=== PATIENT | male | born 1965 | race Caucasian/White ===

== ENCOUNTER 2017-01-03 10:44 | Inpatient (IN) | payer OTHER ==
--- NOTE | ~2017-01-03 | CN ---
Consultation Report [facility] [address] [place]. [address] NAME: SCOTT MENJIVAR : 67 STATUS : ADM IN PAT#: [id number] AGE: 51 ADM/REG DATE : 01/03/17 MR#: [id number] REPORT SERV DATE: 01/04/17 DICTATED BY: ELIECER BRITO DATE: 01/04/17 REPORT STATUS : Draft TRANSCRIBED BY: MODVega DATE: 01/04/17 CONSULT DATE OF CONSULTATION: HISTORY OF PRESENT ILLNESS: This is a 51-year-old patient of Dr. Whittington, I was asked by [facility] to see for vent and ICU management. The patient currently resides at [facility] and normally is off the vent during the day and on the vent at night. 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 The patient has developed progressive abdominal distention and could no longer tolerate being off the vent during the day. He therefore was brought into the emergency room for further evaluation and subsequently, was admitted. CT scan of the abdomen and pelvis showed a large amount of stool in the distal sigmoid colon and rectum. Urinary bladder is decompressed. Prominent gaseous distention was noted in the proximal sigmoid colon and mid transverse colon up to 7.8 cm in diameter. No small bowel dilatation was demonstrated. The patient currently is in the MICU, and we will follow him there and assist in his care. ALLERGIES: THE PATIENT HAS NO KNOWN ALLERGIES. MEDICATIONS: Outpatient medications are: Albuterol nebs, Xanax, Lipitor, , Cardizem, ferrous sulfate, Lasix, Lopid, glucagon, guaifenesin, NovoLog insulin, Lantus insulin, Claritin, metformin, Reglan, multivitamins, Prilosec, MiraLAX, Xarelto, Senokot, Zoloft, Ultram, Ambien, and probiotics. PAST MEDICAL HISTORY: 1. Significant for advanced myotonic dystrophy with bed-bound status, hypercapnic respiratory failure, chronic vent and trach. 2. Chronic hypotension, on midodrine. 3. Hyperlipidemia. 4. Allergic rhinitis. 5. Depression. 6. Sclerosing hemangioma of the liver. 7. Dysphagia with PEG tube placement. 8. History of pleural effusion. 9. Multiple bronchoscopies for mucus plugging. 10.PEG tube placement. 11.Tracheostomy done in July of 2015. 12.Type 2 diabetes mellitus. SOCIAL HISTORY: No known history of smoking. No history of alcohol abuse. FAMILY HISTORY: Significant for hypertension and heart disease. Consultation Report [place] [id number] [place]. [address] NAME: SCOTT MENJIVAR : 67 STATUS : ADM IN [facility]#: [id number] AGE: 51 ADM/REG DATE : 01/03/17 MR#: [id number] REPORT SERV DATE: 01/04/17 DICTATED BY: ELIECER BRITO DATE: 01/04/17 REPORT STATUS : Draft TRANSCRIBED BY: MELL DATE: 01/04/17 REVIEW OF SYSTEMS: A 12-point review of systems was done. It was somewhat difficult since the patient is on the vent and sometimes has difficulty communicating, but his biggest complaint is that of abdominal pain. He does not have any nausea or vomiting at this time. PHYSICAL EXAMINATION: VITAL SIGNS: Temperature has been running 99 to 100, blood pressure 118/74, heart rate is 102 to 110, respiratory rate is 23. GENERAL: The patient is alert. He is responsive. SKIN: Warm and dry. HEENT: Head is atraumatic and normocephalic. Pupils are equal, round, and reactive to light and accommodation. Extraocular eye movements are intact. Sclerae anicteric. Conjunctivae are pink. Nasal mucosa is within normal limits. Oral mucosa is moist. Tongue is midline. Tracheostomy tube is in place and without evidence of infection or drainage. CARDIAC: Reveals a regular rate and rhythm with no significant murmurs. He has markedly decreased breath sounds at the bases. No wheezing is heard. ABDOMEN: Markedly distended and tympanitic. Bowel sounds are diminished. PEG tube is in place and is in dire need of being changed. The PEG tube site is without any drainage or evidence of infection. The patient has a Prince in place. The patient has a small DTI on the first finger on the right hand. Diabetic foot ulcers are noted on his toes and #2 sacral decubitus with Mepilex dressing in place, and with an eschar on the left elbow. NEUROLOGIC: The patient can barely move any of his extremities. He is pretty much bed- bound. He is able to communicate. His cranial nerves are intact. DIAGNOSTIC DATA: Chest X-rays shows marked atelectasis at the bases. Tracheostomy tube is in proper position. Currently, he has had a sputum culture sent and is pending, and he has been started the antibiotics as per Dr. Whittington. His lactic acid level is 1.1. His urinalysis is very suggestive of urinary tract infection, but he does have a chronic Prince. White cell count is 13.7, hemoglobin is 11, hematocrit is 37, platelet count is 266,000. PT/INR is 1.8. Procalcitonin is 0.51. Sodium 142, potassium 3.4, chloride 97, bicarb 35, BUN 22, creatinine 0.3, glucose 244. TSH is less than 0.005, free T4 is 1.4. ASSESSMENT AND PLAN: This is a 51-year-old gentleman with advanced myotonic dystrophy, bedbound, chronic trach and PEG, who presents with severe constipation, abdominal discomfort, and respiratory compromise. The plan will be to continue current vent settings, which are pressure control of 20, pressure support of 10, PEEP of 5, rate of 12, and FiO2 of 50%. We will institute GoLYTELY drip through the PEG tube to facilitate resolution of severe constipation. I have noted extremely low TSH, but normal T3 and T4, which may indicate that this is not a primary hyperthyroidism. We will repeat lab work in the morning with TSH, free T4, and free T3, may be a central etiology. The patient is not on Synthroid according to his MAR. Tube feedings will be continued when the patient can tolerate them. He is already on Xarelto and has not needed any further deep venous thrombosis prophylaxis. Thank you for your consultation. We will follow patient with you. Consultation Report [place] [id number] [place]. [address] NAME: SCOTT MENJIVAR : 67 STATUS : ADM IN [facility]#: [id number] AGE: 51 ADM/REG DATE : 01/03/17 MR#: [id number] REPORT SERV DATE: 01/04/17 DICTATED BY: ELIECER BRITO DATE: 01/04/17 REPORT STATUS : Draft TRANSCRIBED BY: MELL DATE: 01/04/17 /MELL Eliecer Brito M.D. / [id number] CC: Nino Dumont M.D.
--- NOTE | ~2017-01-03 | DS ---
Discharge Summary [facility] [address] [place]. [address] NAME: SCOTT MENJIVAR : 67 STATUS : DIS IN PAT#: [id number] AGE: 51 ADM/REG DATE : 01/03/17 MR#: [id number] REPORT SERV DATE: 01/28/17 DICTATED BY: NUNO DONNELLY DATE: 01/27/17 REPORT STATUS : Draft TRANSCRIBED BY: MELL DATE: 01/27/17 Data Collection from hospitalization DISCHARGE DIAGNOSES: 1. Dupwzzvc-tqhfgdrq-pnjtsamai Klebsiella pneumonia, right greater than left - aspiration/healthcare associated pneumonia. 2. Abdominal distention with constipation - chronic. 3. Dysphagia with PEG tube. 4. Advanced myoclonic dystrophy. 5. Chronic respiratory failure-vent dependent. 6. History of atrial fibrillation/flutter with chronic anticoagulation therapy. 7. Hypotension - chronic. 8. History of sclerosing hemangioma of the liver. 9. Depression. 10.Hyperlipidemia. 11.Gait impairment. 12.Debilitation. 13.History of anemia of chronic disease. CONSULTATIONS: Dr. Lashell Brito, Dr. Hubert Cano, Dr. Andrei Buchanan, Dr. Panfilo Ervin. PROCEDURES: 1. CT scan of the abdomen and pelvis without contrast, 01/03/2017. 2. CT scan of the chest without contrast, 01/15/2017. DISCHARGE MEDICATIONS: Xanax 0.5 mg per PEG tube three times a day, Lipitor 10 mg per PEG tube at bedtime, Lioresal 5 mg per PEG tube three times a day, Cardizem 30 mg per PEG tube three times a day, ferrous sulfate 300 mg per PEG tube twice a day, Lasix 40 mg per PEG tube daily, Lopid 600 mg per PEG tube twice a day, felypressin 10 mL per PEG tube every eight hours, NovoLog injection insulin as instructed, Claritin 10 mg per PEG tube daily, Linzess 145 mcg daily as instructed, Merrem 500 mg IV every six hours as needed through 01/17/2017, Reglan 5 mg every six hours, Centrum multivitamins with minerals 15 mL daily, Mycostatin topical powder apply to rash topically daily, Mycostatin cream apply to rash topically daily, Prilosec 20 mg per PEG tube daily, MiraLAX powder one packet per PEG tube daily, Xarelto 20 mg at 5 p.m., Florastor one capsule at bedtime, Senokot two tablets per PEG tube daily, Zoloft 150 mg per PEG tube daily, Ambien 5 mg per PEG tube at bedtime, sodium chloride as instructed, Mucomyst 3 mL via inhaler every eight hours as instructed, DuoNeb 3 mL via inhaler every four hours as instructed, Tylenol 650 mg orally every four hours as needed, Ultram 50 mg per PEG tube every six hours as needed, DuoNeb inhaled solution one nebulized inhaler three times a day as needed. CONDITION ON DISCHARGE: Stable. DISPOSITION: The patient was discharged to [facility] nursing [facility] on tube feedings with activities as instructed. HOSPITAL COURSE: This is a 51-year-old man who was transferred from [facility] to the [facility] Emergency Room with the chief complaint of abdominal pain Discharge [address] [address] NAME: SCOTT MENJIVAR : 67 STATUS : DIS IN PAT#: [id number] AGE: 51 ADM/REG DATE : 01/03/17 MR#: [id number] REPORT SERV DATE: 01/28/17 DICTATED BY: NUNO DONNELLY DATE: 01/27/17 REPORT STATUS : Draft TRANSCRIBED BY: MELL DATE: 01/27/17 and increased trach sputum. He has a long unfortunate hospital course over the past year or so. He has chronic advanced myoclonic dystrophy with chronic respiratory failure and tracheostomy. He was at [facility] for long-term care when it was noted that he had increased sputum, abdominal distention, and overall decline, he was transferred to the emergency room. Workup there revealed questionable pneumonia, leukocytosis, and multiple other abnormalities with electrolytes as well as stool stasis and obstipation with abdominal distention. He was admitted to the hospital at this time for further evaluation and treatment. Upon admission, a CT scan of the abdomen and pelvis without contrast was performed. He was covered with broad-spectrum microbes with Zosyn and vancomycin. Blood cultures were obtained. Prince catheter was going to be changed and repeat urinalysis would be obtained. Tube feedings would be restarted once his fecal stasis cleared. The following day, a PICC line was inserted. Blood cultures were negative. He was felt to have bilateral pneumonia- health care associated pneumonia, right greater than left. Antibiotics were continued. The head of his bed was elevated at 30 degrees. He does have a PEG tube as he does have dysphagia. He was seen by Dr. Lashell Brito. The CT scan of the abdomen and pelvis had shown a large amount of stool in the distal sigmoid colon and rectum. Urinary bladder was decompressed. Prominent gaseous distention was noted in the proximal sigmoid colon and mid transverse colon up to 7.8 cm in diameter. No small bowel dilatation was demonstrated. He was currently in the MICU. Chest x-ray showed marked atelectasis at the bases. Tracheostomy tube was in the proper position. Sputum culture was pending. White blood cell count was 13.7. GoLYTELY drip was going to be initiated through PEG tube. Tube feedings would be continued once the patient could tolerate them. He was already on Xarelto. The patient was found to have Enterococcus urinary tract infection. He was in atrial fibrillation/flutter and was rate controlled on Cardizem and Xarelto. Sliding scale insulin and Levemir were continued. On 01/08/2017, he was seen by Dr. Andrei Buchanan. Creatinine level was less than 0.15 which was very low. Liver enzymes were within normal limits. White count was 8. He was felt to have possible right lower lobe pneumonia in a patient on chronic ventilator with quadriplegia. Sputum culture grew extended-spectrum beta-lactamase Klebsiella and gram-negative rods, but this was from a chronic tracheostomy so it was unclear what the value was. He was afebrile. Procalcitonin on admission was not very elevated. It was hard to tell if he had any acute pneumonia at this time. He had a positive urine culture on admission for enterococci, but he does have a chronic Prince. Repeat urinalysis did not show large pyuria, but it did show hematuria in cath. He has a colonic distention and fecal stasis. Although, he had bowel movement, he still had abdominal distention. He has a very low TSH but a normal free T4. He was also seen by Dr. Hubert Cano regarding PEG tube change and fecal impaction with abdominal distention. He had a PEG tube in place that was very degenerated and had requested change of this. He was given GoLYTELY via the PEG tube and soapsuds enemas with a large amount of output. It was felt that the PEG tube was damaged and would need to be replaced. He had fecal impaction with colon distention. He appeared to have significant output from the treatment that he received at this point, and there was no reason to pursue any type of endoscopy in this patient, but he did recommend that we start Linzess for his chronic constipation. On 01/07/2017, metformin was held as he had some hypoglycemia. Potassium supplementation was given. Antibiotics were continued. Urine culture was negative. He did have slight Discharge Summary [address] [place]. [address] NAME: SCOTT MENJIVAR : 67 STATUS : DIS IN PAT#: [id number] AGE: 51 ADM/REG DATE : 01/03/17 MR#: [id number] REPORT SERV DATE: 01/28/17 DICTATED BY: NUNO DONNELLY DATE: 01/27/17 REPORT STATUS : Draft TRANSCRIBED BY: MELL DATE: 01/27/17 hematuria. The next day, the Prince catheter was draining well. He had bloody urine with minimal clot. C. difficile study was negative. Urine culture was negative. He had a high fever during the night. On 01/09/2017, he had no further fever reported. He was on ventilator. Meropenem was continued. Vancomycin had been added. His hematuria resolved. The patient had an ileus. The patient's abdomen was large, rounded, and distended with hypoactive bowel sounds. He had 2+ lower extremity edema. Tube feedings were being provided. His T-max was 100.4. On 01/11/2017, he was more alert. He had no shortness of breath. He had very little residual. He had a lot of secretions suction. The patient has ESBL-Klebsiella pneumonia. Antibiotics were continued. Hemoglobin and hematocrit remained stable. T-max was 99.6. Meropenem was continued. He continued to tolerate his PEG feedings. He was seen in consultation. The patient was seen by Dr. Panfilo Ervin. He had been consulted for paronychia, bilateral hallux. The patient is a poor historian and was unable to determine a history of paronychia. The left hallux was anesthetized with lidocaine. He underwent removal of total left hallux nail. Dry sterile dressing was placed. The right hallux nail was debrided as far proximal as possible-half nail and removed the lateral border. Dry sterile dressing was applied. We would continue dry dressings until this healed. All of his other nails were debrided. On 01/14/2017, the patient denied any complaints of breathing difficulty. He was afebrile. Meropenem was continued. He continued to do well. Discharge planning was performed. He had 2+ bilateral lower extremity edema. On 01/16/2017, he was alert but non communicative. His abdomen was soft and nontender. He had no edema. CT scan of the chest without contrast was performed Discharge instructions were given. Due to his improved and stable condition, he was discharged to [facility] nursing [facility] with the above-stated instructions. Information collected by: Claudia Mcdowell I submit the above information as my discharge summary. TG/MODL Nuno Donnelly M.D. / [id number] CC: Nino Dumont M.D. Paul Cornea, M.D. Gregory Olds, MD [facility] Nickie PedrozaPArias
--- NOTE | ~2017-01-03 | CN ---
Consultation Report [facility] [address] [place]. [address] NAME: SCOTT MENJIVAR : 67 STATUS : ADM IN [facility]#: [id number] AGE: 51 ADM/REG DATE : 01/03/17 MR#: [id number] REPORT SERV DATE: 01/04/17 DICTATED BY: HUBERT CANO DATE: 01/04/17 REPORT STATUS : Draft TRANSCRIBED BY: MODL DATE: 01/04/17 CONSULTATION DATE OF CONSULTATION: REASON FOR CONSULTATION: PEG tube change and fecal impaction with abdominal distention. Mr. Menjivar is a 51-year-old man with extensive medical history, currently residing at [facility] on chronic intermittent vent with advanced myotonic dystrophy. He presented with abdominal distention and was noted to have a large amount of stool within the sigmoid colon and some distention of the transverse colon up to 7.8 mm. He also was noted to have a PEG tube in place that was very degenerated and requests change of this. Of note, the patient was given GoLYTELY per his PEG and soapsuds enemas with large amount of output. PAST MEDICAL HISTORY: The patient's past medical history includes diabetes mellitus, myotonic dystrophy, hypertension, and hyperlipidemia. CURRENT MEDICATIONS: See the MAR. ALLERGIES: HE HAS NO KNOWN DRUG ALLERGIES. SOCIAL HISTORY: Unable to obtain from the patient. FAMILY HISTORY: Unable to obtain from the patient. REVIEW OF SYSTEMS: Unable to obtain from the patient. PHYSICAL EXAMINATION: GENERAL: The patient is lying in bed, in no apparent distress. He responded somewhat to voice, but he could not speak as he was intubated. It was unclear how much he could understand. HEENT: His head is atraumatic and normocephalic. His sclerae were nonicteric. Conjunctivae clear. NECK: Revealed no crepitus or thyromegaly. LUNGS: Clear. HEART: Regular rate and rhythm. ABDOMEN: Abdomen was distended. The PEG tube was noted to be in place with degeneration of the plastic around the tube and some tape ceiling lift. EXTREMITIES: Revealed no clubbing or cyanosis. LYMPHATICS: Revealed no lymphadenopathy in the neck or axilla. LAB: Notable for white count 11.6 with hemoglobin of 11.6. TSH was noted to be very low. Consultation Report [facility] [address] [place]. [address] NAME: SCOTT MENJIVAR : 67 STATUS : ADM IN PAT#: [id number] AGE: 51 ADM/REG DATE : 01/03/17 MR#: [id number] REPORT SERV DATE: 01/04/17 DICTATED BY: HUBERT CANO DATE: 01/04/17 REPORT STATUS : Draft TRANSCRIBED BY: MODL DATE: 01/04/17 IMPRESSION: 1. Dysphagia. PEG tube is damaged, needs to be replaced. 2. Fecal impaction with colon distention. The patient appears to have had a significant output from the treatment that he has received at this point, I see no reason to pursue any type of endoscopy in this patient but we would start Linzess for his chronic constipation. GO/MODL Hubert Cano MD / [id number] CC: Nino Dumont M.D.
--- NOTE | ~2017-01-03 | CN ---
Consultation Report [facility] [address] [place]. [address] NAME: SCOTT MENJIVAR : 67 STATUS : DIS IN PAT#: [id number] AGE: 51 ADM/REG DATE : 01/03/17 MR#: [id number] REPORT SERV DATE: 01/28/17 DICTATED BY: YASMANY SANTAMARIA DATE: 01/28/17 REPORT STATUS : Draft TRANSCRIBED BY: MODL DATE: 01/28/17 CONSULTATION DATE OF CONSULTATION: REASON FOR CONSULTATION: Gross hematuria. HISTORY OF PRESENT ILLNESS: Mr. Menjivar is a 51-year-old white gentleman who is ventilator dependent with a permanent tracheostomy and a feeding tube, who was transferred to [facility] with pneumonia from a long-term care facility. He also had according to the nurses severe constipation with abdominal distention. We were asked to see him because he had catheter change. He did develop some mildly gross hematuria. Catheter is draining well however and on irrigation, it irrigates well confirming positioning within the bladder. The patient is nonverbal and can give no history. There is no family available. PHYSICAL EXAMINATION: GENERAL: This is a well-developed gentleman, chronically bed ridden with permanent tracheostomy and a PEG tube. ABDOMEN: Markedly distended and hypertympanitic. However, it is not dull, does not percuss out to be the bladder. GENITALIA: Normal penis and testes. Indwelling Prince catheter is present and draining slightly pink-tinged urine. It irrigates well with a syringe. Perineum normal. RECTAL: Exam not done. IMPRESSION: Catheter trauma. PLAN: Continue conservative therapy. We will follow along with you. There is no indication for other intervention at this time. Thanks very much for asking us to see Mr. Menjivar. MS/MODL Yasmany Santamaria M.D. / [id number] CC: Nino Dumont M.D.
--- NOTE | ~2017-01-03 | HP ---
History And Physical [address] [place]. [address] NAME: SCOTT MENJIVAR : 67 STATUS : ADM IN [facility]#: [id number] AGE: 51 ADM/REG DATE : 01/03/17 MR#: [id number] REPORT SERV DATE: 01/04/17 DICTATED BY: NUNO DONNELLY DATE: 01/03/17 REPORT STATUS : Draft TRANSCRIBED BY: MODL DATE: 01/03/17 DATE OF ADMISSION: 01/03/2017 CHIEF COMPLAINT: Abdominal pain and increased trach sputum. HISTORY OF PRESENT ILLNESS: A 51-year-old white male, transferred from [facility] at [facility] to [facility] Emergency Room for the above complaints. Due to the patient's decreased ability to speak secondary to trach and decreased mental status, full history and physical exam difficult to obtain. Chart and staff were reviewed. The patient has had a long, unfortunate hospital course over the last year or so. 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 Please see old records. He was at [facility] for long-term care when it was noted that he had some increased sputum, abdominal distention, and just overall decline; therefore, he was transferred to the emergency room. Workup there revealed questionable pneumonia, leukocytosis, multiple other abnormalities with electrolytes, as well as stool stasis and obstipation with abdominal distention. Therefore, he was admitted for antibiotic care, ventilatory support, and evaluation of his abdominal symptoms. ALLERGIES: NO KNOWN DRUG ALLERGIES. MEDICATIONS: Please see MAR. 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 PAST SURGICAL HISTORY: PEG tube placement, tracheostomy, and history of CABG. SOCIAL HISTORY: The patient currently is residing at [facility], never , Ca[employer] yarsani, has relatives that help with his care, no history of smoking. FAMILY HISTORY: Hypertension and heart disease. REVIEW OF SYSTEMS: Unable to obtain due to the patient's decreased mental status. PHYSICAL EXAMINATION: VITAL SIGNS: Blood pressure 117/72, pulse 90, respirations 20 on vent, temperature 98.3. GENERAL: White male lying in bed, in no acute distress. HEAD: Normocephalic, atraumatic. History And Physical [address] [place]. [address] NAME: SCOTT MENJIVAR : 67 STATUS : ADM IN [facility]#: [id number] AGE: 51 ADM/REG DATE : 01/03/17 MR#: [id number] REPORT SERV DATE: 01/04/17 DICTATED BY: NUNO DONNELLY DATE: 01/03/17 REPORT STATUS : Draft TRANSCRIBED BY: MODL DATE: 01/03/17 EYES: Some chronic redness, but otherwise anicteric. ENT: Fair dentition with moist mucosa. NECK: Trach present, but no bleeding. LUNGS: Bilateral rhonchi and rales. HEART: Faint sounds, but otherwise regular rate and rhythm. ABDOMEN: Distended, PEG tube in place, tympanic to percussion. Please see CT report. : Prince is present. EXTREMITIES: Chronic wasting. LYMPH: Overall chronic generalized edema. NEURO: Does move extremities and follow simple commands. SKIN: Right elbow with lesion - please see wound care. LABORATORY DATA: CBC shows WBC 13, H and H of 11.5 and 37.5, PLT 266. Chemistry shows Na 142, K 3.4, Cl 97, CO2 of 35, BUN 22, creatinine 0.3. GFR 156. Glucose 244. IMAGING: Chest x-ray shows low lung volumes with bibasilar atelectasis versus consolidation. A small amount of pleural fluid may also be present. Status post CABG with tracheostomy tube in stable position. CT of the abdomen shows large amount of stool in the distal sigmoid colon and rectum with prominent gaseous distention of the proximal sigmoid colon and mild transverse colon up to 7.8 cm in diameter. No small bowel dilatation is demonstrated. Also, there is dense consolidation and atelectasis in the basal aspect of the lower lobes with some minimal patchy infiltrate, may also be present in the right middle lobe. Examination was limited. CONSULTATION: Critical Care was consulted. Appreciate their help with this case. IMPRESSION: 1. Bilateral pneumonia with right greater than left - health center acquired pneumonia, but must consider questionable aspiration. 2. Abdominal distention with obstipation. 3. Leukocytosis. 4. Anemia of chronic disease. 5. Hypokalemia. 6. Pyuria with chronic Prince. 7. History of advanced myotonic dystrophy. 8. Chronic respiratory failure - hypoxic and hypercapnic - with tracheostomy. 9. Dysphagia with percutaneous endoscopic gastrostomy. 10.Debilitation. PLAN: 1. We will cover for broad-spectrum microbes and have Pharmacy dose Zosyn and vancomycin. The patient is at risk for sepsis. 2. Follow leukocytosis as he is at risk for bacteremia. We will check blood cultures. 3. We will begin bowel regimen and try to clear his fecal stasis. The patient is at risk for perforation. 4. Follow H and H as he is at risk for hypoxia with decreasing hematocrit. History And Physical [address] [address] NAME: SCOTT MENJIVAR : 67 STATUS : ADM IN [facility]#: [id number] AGE: 51 ADM/REG DATE : 01/03/17 MR#: [id number] REPORT SERV DATE: 01/04/17 DICTATED BY: NUNO DONNELLY DATE: 01/03/17 REPORT STATUS : Draft TRANSCRIBED BY: MELL DATE: 01/03/17 5. Electrolyte protocol as he is at risk for cardiac arrhythmia. 6. We will change Prince and repeat urinalysis and treat accordingly. The patient is at risk for pyelonephritis. 7. Consult Respiratory for support with his chronic vent. The patient is at risk for mucous plugging as he has had it before in the past and subsequent hypoxia. 8. Head of bed at 30 degrees as he is at risk for aspiration. We will check on restarting tube feedings once his fecal stasis is cleared. 9. DVT precautions. RH/MODL Nuno Donnelly M.D. / [id number] CC: Nino Dumont M.D.
--- NOTE | ~2017-01-03 | CN ---
Consultation Report [facility] [address] [place]. [address] NAME: SCOTT MENJIVAR : 67 STATUS : ADM IN PAT#: [id number] AGE: 51 ADM/REG DATE : 01/03/17 MR#: [id number] REPORT SERV DATE: 01/06/17 DICTATED BY: ANDREI FONSECA DATE: 01/06/17 REPORT STATUS : Draft TRANSCRIBED BY: MODL DATE: 01/06/17 INFECTIOUS DISEASE CONSULT DATE OF CONSULTATION: REASON FOR CONSULT: ESBL Klebsiella pneumoniae. 51 years old white male, with myotonic dystrophy and chronic respiratory failure, on chronic ventilator through a tracheostomy. He was admitted for abdominal distention and increased sputum production. The patient is awake, but unable to talk. I reviewed the chart. He had a tympanitic distended abdomen and the CT scan in the emergency room showed distended left side of the colon with stool impaction and atrophic pancreas. There was also areas of consolidation due to pneumonia or atelectasis in both bases, but more so on the right lower lobe. Admission lab work showed a lactic acid of 1.1, a procalcitonin of 0.5. WBC of 13. Creatinine 0.3. TSH less than 0.05 and free T4 of 1.4. He was started on vancomycin and Zosyn. Urinalysis also showed bacteriuria with WBC of 75 and hematuria. Also, some calcium oxalate crystals. He was put on GoLYTELY drip through a feeding tube as well as antibiotics with vancomycin and Zosyn. The admission blood cultures were negative. A sputum culture is growing an ESBL Klebsiella and a second gram-negative jasbir. The Gram stain showed moderate white blood cells, few gram variable bacilli and rare gram-positive cocci. Admission urine culture grew Enterococcus faecalis, 75,000 colonies. Unclear how was that obtained since he has a chronic Prince. The Prince catheter was changed at some point and now the patient has hematuria. A repeat urinalysis shows 39 white blood cells, positive blood, positive casts. The patient has been afebrile here in the hospital. He has large amount of sputum production. He is on a ventilator with FiO2 of 50% and oxygen saturation of 100%. Chest x- ray initially showed a very diminished lung martinez. A followup chest x-ray yesterday showed better aeration, some blunting of the left costophrenic angle, but no obvious infiltrates. He has had some bowel movements. PAST MEDICAL HISTORY: As I mentioned above plus liver hemangioma, history of mucus plugging. SOCIAL HISTORY: He is in a detention. FAMILY HISTORY: Cannot be obtained. ALLERGIES: NONE LISTED. MEDICATIONS: On admission, it is not available. Current medications list includes Xanax, Lipitor, baclofen, Cardizem, iron, Lasix, gemfibrozil, Robitussin, insulin, liraglutide, loratadine, metformin, Reglan, multivitamin with minerals, Protonix, MiraLAX, Xarelto, Florastor, Senokot, and the antibiotics. Also, Zoloft, Ambien, and insulin. Consultation Report [address] [place]. [address] NAME: SCOTT MENJIVAR : 67 STATUS : ADM IN [facility]#: [id number] AGE: 51 ADM/REG DATE : 01/03/17 MR#: [id number] REPORT SERV DATE: 01/06/17 DICTATED BY: ANDREI FONSECA DATE: 01/06/17 REPORT STATUS : Draft TRANSCRIBED BY: MELL DATE: 01/06/17 PHYSICAL EXAMINATION: GENERAL: He is awake. He has diminished lung sounds throughout, but with egophony at the right base. HEART: Regular rhythm. Distant sounds. ABDOMEN: Very distended with hypoactive bowel sounds. Trach site and PEG site with some erythema. SKIN: With a right elbow wound that is packed, says some arms edema. He has a superficial scab over the left Achilles tendon area. He has a new right arm PICC line. LABORATORY DATA: Lab work today. Sodium increased to 152. Creatinine down to less than 0.15 which is very low given his body size. Liver enzymes within normal limits. WBC 8, hemoglobin 10. ASSESSMENT AND PLAN: 1. Possible right lower lobe pneumonia in a patient on chronic ventilator with quadriplegia. Sputum culture grew extended spectrum beta-lactamase Klebsiella, and gram-negative rods, but again this is from a chronic tracheostomy, so it is unclear what the value is. The patient has been afebrile. Procalcitonin on admission was not very high. He is on 50% FiO2 with good oxygen saturation. Really, it is hard to tell if he has any acute pneumonia at this time. 2. He had a positive urine culture on admission for enterococci, but he has chronic Prince catheter. The repeat urinalysis does not show large pyuria, but does show hematuria and casts. 3. He was admitted with colonic distention and fecal stasis. Although he had bowel movements, he still has abdominal distention. 4. Probably euthyroid sick with very low TSH, but normal free T4. This will need to be followed up in a few weeks. 5. Follow up chest x-ray, procalcitonin, oxygen needs, and for now changed the antibiotic to meropenem alone. PC/MODL Andrei Fonseca M.D. / [id number] CC: Nino Dumont M.D.
--- NOTE | ~2017-01-03 | CN ---
Consultation Report [facility] [address] [place]. [address] NAME: SCOTT MENJIVAR : 67 STATUS : ADM IN PAT#: [id number] AGE: 51 ADM/REG DATE : 01/03/17 MR#: [id number] REPORT SERV DATE: 01/04/17 DICTATED BY: ELIECER BRITO DATE: 01/04/17 REPORT STATUS : Draft TRANSCRIBED BY: MODL DATE: 01/04/17 DATE OF CONSULTATION: HISTORY OF PRESENT ILLNESS: This is a 51-year-old patient, I was asked to see by Dr. Whittington for vent management. The patient currently resides at [facility] and has a history of advanced myotonic dystrophy, chronic respiratory failure on chronic tracheostomy. He is normally off the vent during the day and it is on the vent during the night. He has developed abdominal distention, progressive respiratory failure, and has not been able to tolerate being off the vent during the day. His abdomen has become increasingly distended, and he therefore, was referred to the emergency room for further evaluation. He was seen in the ER and subsequently, had a CT scan of the abdomen and pelvis that show DICTATION ENDS HERE /MODL Eliecer Brito M.D. / [id number] CC: Nino Dumont M.D.
[2017-01-03 11:26] LABS: ASCORBIC ACID (UR NOT ORDER) 40 (NEG); BILIRUBIN, URINE NEGATIVE (NEG); ER URINALYSIS TAT 0 Hrs 09 Mins; KETONE, URINE NEGATIVE (NEG); LEUKOCYTE ESTERASE(NOT OR LARGE (NEG); NITRITE (URINE) NEG (NEG); WBC (NOT ORDERED) (RFLEX) 75 (0-5)
[2017-01-03 11:43] LABS: BASOPHILS 0.1 %; BASOPHILS ABSOLUTE 0.02 10/3/uL (0.0-0.16); EOSINOPHILS 0.8 %; EOSINOPHILS ABSOLUTE 0.11 10/3/uL (0.0-0.53); HEMATOCRIT 37.5 % (40.0-51.0); HEMOGLOBIN 11.5 g/dL (13.6-17.8); IMMATURE GRANULOCYTES 0.3 %; IMMATURE GRANULOCYTES ABSOLUTE 0.04 10/3/uL (0.0-0.11); LYMPHOCYTES 7.5 %; LYMPHOCYTES ABSOLUTE 1.03 10/3/uL (0.67-4.30); MANUAL DIFF NO %; MEAN CORPUS HGB CONC 30.7 g/dL (32.0-36.0); MEAN CORPUSCULAR HEMOGLOB 25.4 pg (26.0-34.0); MEAN PLATELET VOLUME 9.8 fL (9.2-13.0); MONOCYTES 3.8 %; MONOCYTES ABSOLUTE 0.52 10/3/uL (0.21-1.20); NEUTROPHILS 87.5 %; NEUTROPHILS ABSOLUTE 11.94 10/3/uL (2.02-8.40); PLATELET COUNT 266 10/3/uL (150-400); RBC DISTRIBUTION WIDTH 18.2 % (12.0-16.0); RED CELL COUNT 4.52 10/6/uL (4.7-6.1); WHITE BLOOD CELLS 13.7 10/3/uL (4.5-10.5)
[2017-01-03 11:50] LABS: INTERNATIONAL NORMAL RATI 1.8 UNITS (-); PARTIAL THROMBO TIME 41.7 SEC (22.5-37.2)
[2017-01-03 12:00] LABS: A/G RATIO 0.6 (0.7-1.9); ALBUMIN 2.5 G/DL (3.5-5.0); ALKALINE PHOSPHATASE 75 U/L (45-117); BUN (BLOOD UREA NITROGEN) 22 MG/DL (6-23); CHLORIDE, SERUM 97 MMOL/L (96-112); CO2 (CARBON DIOXIDE) 35 MMOL/L (24-34); GFR AFRICAN AMERICAN 181 ML/MIN (>=60); GFR NON AFRICAN AMERICAN 156 ML/MIN (>=60); GLOBULIN 4.5 G/DL (2.5-4.1); GLUCOSE, SERUM 244 MG/DL (60-99); SGOT(AST) 14 U/L (5-40); SGPT(ALT) 14 U/L (5-65); SODIUM, SERUM 142 MMOL/L (135-148); TOTAL BILIRUBIN 0.5 MG/DL (0-1.2)
[2017-01-03 12:01] LABS: POTASSIUM, SERUM 3.4 MMOL/L (3.5-5.3)
[2017-01-03 12:04] LABS: LACTATE 1.1 MMOL/L (0.3-2.4)
[2017-01-03 12:24] LABS: PROTIME (NOT ORD) 20.6 SEC (12.0-14.5)
[2017-01-03 12:29] LABS: PROCALCITONIN 0.51 ng/mL (<0.5)
[2017-01-03] MEDS ORDERED: CLARIT10 PEG (15:54)
[2017-01-03] MEDS ORDERED: SILTUSSIN100 MG/5 M PEG (15:55)
[2017-01-03] MEDS ORDERED: LIOR10 PEG (15:55)
[2017-01-03] MEDS ORDERED: CENTRUM PEG (15:56)
[2017-01-03] MEDS ORDERED: AMB5 PEG (15:56)
[2017-01-03] MEDS ORDERED: PRILO PEG (15:57)
[2017-01-03] MEDS ORDERED: MIRALAX POWDER1 PKT PEG (15:57)
[2017-01-03] MEDS ORDERED: PROBIOTIC PEG (15:57)
[2017-01-03] MEDS ORDERED: SENTAB PEG (15:58)
[2017-01-03] MEDS ORDERED: ZOL100 PEG (15:58)
[2017-01-03] MEDS ORDERED: LANTUS SC (15:59)
[2017-01-03] MEDS ORDERED: GLUCOPHAGE1000 MG PEG (16:00)
[2017-01-03] MEDS ORDERED: HUMALOGPEN SC (16:00)
[2017-01-03] MEDS ORDERED: GLUCPH PEG (16:01)
[2017-01-03] MEDS ORDERED: FESO4UDL PEG (16:01)
[2017-01-03] MEDS ORDERED: DUONEB INH (16:01)
[2017-01-03] MEDS ORDERED: L40 PEG (16:02)
[2017-01-03] MEDS ORDERED: CARD30 PEG (16:02)
[2017-01-03] MEDS ORDERED: LOPID6 PEG (16:02)
[2017-01-03] MEDS ORDERED: REG PEG (16:03)
[2017-01-03] MEDS ORDERED: HEPA50006 SC (16:04)
[2017-01-03] MEDS ORDERED: XARELTO20 MG PO (16:04)
[2017-01-03] MEDS ORDERED: ULTRAM50 PEG (16:05)
[2017-01-03] MEDS ORDERED: GLUCAGON IM (16:06)
[2017-01-03] MEDS ORDERED: X5 PEG (16:24)
[2017-01-03] MEDS ORDERED: LIPITOR10 PEG (16:25)
[2017-01-03 19:45] LABS: ULTRASENSITIVE TSH < 0.005 MCIU/ML (0.358-3.740)
[2017-01-04 04:42] LABS: BASOPHILS 0.2 %; BASOPHILS ABSOLUTE 0.02 10/3/uL (0.0-0.16); EOSINOPHILS 2.7 %; EOSINOPHILS ABSOLUTE 0.31 10/3/uL (0.0-0.53); HEMATOCRIT 38.7 % (40.0-51.0); HEMOGLOBIN 11.6 g/dL (13.6-17.8); IMMATURE GRANULOCYTES 0.3 %; IMMATURE GRANULOCYTES ABSOLUTE 0.03 10/3/uL (0.0-0.11); LYMPHOCYTES 8.9 %; LYMPHOCYTES ABSOLUTE 1.03 10/3/uL (0.67-4.30); MEAN CORPUSCULAR HEMOGLOB 25.6 pg (26.0-34.0); MEAN CORPUSCULAR VOLUME 85.4 fL (80-100); MEAN PLATELET VOLUME 10.1 fL (9.2-13.0); MONOCYTES 6.3 %; MONOCYTES ABSOLUTE 0.73 10/3/uL (0.21-1.20); NEUTROPHILS 81.6 %; NEUTROPHILS ABSOLUTE 9.44 10/3/uL (2.02-8.40); PLATELET COUNT 256 10/3/uL (150-400); RBC DISTRIBUTION WIDTH 17.9 % (12.0-16.0); RED CELL COUNT 4.53 10/6/uL (4.7-6.1); WHITE BLOOD CELLS 11.6 10/3/uL (4.5-10.5)
[2017-01-04 04:45] LABS: MANUAL DIFF NO %
[2017-01-04 05:06] LABS: ALBUMIN 2.5 G/DL (3.5-5.0); BUN (BLOOD UREA NITROGEN) 12 MG/DL (6-23); CALCIUM, SERUM 9.1 MG/DL (8.5-10.4); CHLORIDE, SERUM 102 MMOL/L (96-112); CO2 (CARBON DIOXIDE) 33 MMOL/L (24-34); CREATININE < 0.15 MG/DL (0.70-1.30); FREE T4 1.27 NG/DL (0.76-1.46); GFR AFRICAN AMERICAN 240 ML/MIN (>=60); GFR NON AFRICAN AMERICAN 207 ML/MIN (>=60); GLUCOSE, SERUM 140 MG/DL (60-99); PHOSPHORUS, SERUM 2.7 MG/DL (2.5-4.5); POTASSIUM, SERUM 3.3 MMOL/L (3.5-5.3); SODIUM, SERUM 145 MMOL/L (135-148); ULTRASENSITIVE TSH < 0.005 MCIU/ML (0.358-3.740)
[2017-01-05 04:45] LABS: BASOPHILS 0.3 %; BASOPHILS ABSOLUTE 0.02 10/3/uL (0.0-0.16); EOSINOPHILS 1.4 %; EOSINOPHILS ABSOLUTE 0.11 10/3/uL (0.0-0.53); HEMATOCRIT 38.9 % (40.0-51.0); IMMATURE GRANULOCYTES 0.5 %; IMMATURE GRANULOCYTES ABSOLUTE 0.04 10/3/uL (0.0-0.11); LYMPHOCYTES 11.4 %; LYMPHOCYTES ABSOLUTE 0.88 10/3/uL (0.67-4.30); MEAN CORPUSCULAR HEMOGLOB 24.4 pg (26.0-34.0); MEAN CORPUSCULAR VOLUME 86.4 fL (80-100); MEAN PLATELET VOLUME 10.5 fL (9.2-13.0); MONOCYTES 8.4 %; MONOCYTES ABSOLUTE 0.65 10/3/uL (0.21-1.20); NEUTROPHILS ABSOLUTE 6.05 10/3/uL (2.02-8.40); PLATELET COUNT 212 10/3/uL (150-400); RBC DISTRIBUTION WIDTH 18.3 % (12.0-16.0); WHITE BLOOD CELLS 7.8 10/3/uL (4.5-10.5)
[2017-01-05 04:48] LABS: MEAN CORPUS HGB CONC 28.3 g/dL (32.0-36.0)
[2017-01-05 04:49] LABS: MANUAL DIFF NO %
[2017-01-05 05:15] LABS: BUN (BLOOD UREA NITROGEN) 10 MG/DL (6-23); CALCIUM, SERUM 8.2 MG/DL (8.5-10.4); CHLORIDE, SERUM 109 MMOL/L (96-112); CREATININE 0.15 MG/DL (0.70-1.30); GFR AFRICAN AMERICAN 240 ML/MIN (>=60); GFR NON AFRICAN AMERICAN 207 ML/MIN (>=60); SODIUM, SERUM 147 MMOL/L (135-148); VANCOMYCIN TROUGH 25.9 MCG/ML (10.0-20.0)
[2017-01-05 05:16] LABS: CO2 (CARBON DIOXIDE) 27 MMOL/L (24-34); GLUCOSE, SERUM 110 MG/DL (60-99); POTASSIUM, SERUM 3.5 MMOL/L (3.5-5.3)
[2017-01-06 06:38] LABS: BASOPHILS 0.2 %; BASOPHILS ABSOLUTE 0.02 10/3/uL (0.0-0.16); EOSINOPHILS 3.3 %; EOSINOPHILS ABSOLUTE 0.27 10/3/uL (0.0-0.53); HEMOGLOBIN 9.9 g/dL (13.6-17.8); IMMATURE GRANULOCYTES 0.6 %; IMMATURE GRANULOCYTES ABSOLUTE 0.05 10/3/uL (0.0-0.11); LYMPHOCYTES 11.4 %; LYMPHOCYTES ABSOLUTE 0.94 10/3/uL (0.67-4.30); MEAN CORPUSCULAR HEMOGLOB 25.5 pg (26.0-34.0); MEAN CORPUSCULAR VOLUME 85.3 fL (80-100); MEAN PLATELET VOLUME 9.7 fL (9.2-13.0); MONOCYTES 8.4 %; MONOCYTES ABSOLUTE 0.69 10/3/uL (0.21-1.20); NEUTROPHILS 76.1 %; NEUTROPHILS ABSOLUTE 6.25 10/3/uL (2.02-8.40); PLATELET COUNT 211 10/3/uL (150-400); RED CELL COUNT 3.88 10/6/uL (4.7-6.1); WHITE BLOOD CELLS 8.2 10/3/uL (4.5-10.5)
[2017-01-06 06:40] LABS: HEMATOCRIT 33.1 % (40.0-51.0); MANUAL DIFF NO %; MEAN CORPUS HGB CONC 29.9 g/dL (32.0-36.0)
[2017-01-06 06:54] LABS: CALCIUM, SERUM 8.3 MG/DL (8.5-10.4); CHLORIDE, SERUM 113 MMOL/L (96-112); CO2 (CARBON DIOXIDE) 27 MMOL/L (24-34); PHOSPHORUS, SERUM 2.6 MG/DL (2.5-4.5); SGOT(AST) 18 U/L (5-40); SGPT(ALT) 16 U/L (5-65); SODIUM, SERUM 152 MMOL/L (135-148); TOTAL BILIRUBIN 0.4 MG/DL (0-1.2)
[2017-01-06 06:55] LABS: A/G RATIO 0.5 (0.7-1.9); ALBUMIN 1.9 G/DL (3.5-5.0); ALKALINE PHOSPHATASE 59 U/L (45-117); BUN (BLOOD UREA NITROGEN) 5 MG/DL (6-23); CREATININE < 0.15 MG/DL (0.70-1.30); GFR AFRICAN AMERICAN 240 ML/MIN (>=60); GFR NON AFRICAN AMERICAN 207 ML/MIN (>=60); GLOBULIN 3.5 G/DL (2.5-4.1); GLUCOSE, SERUM 70 MG/DL (60-99); POTASSIUM, SERUM 2.2 MMOL/L (3.5-5.3); TOTAL PROTEIN 5.4 G/DL (6.0-8.5)
[2017-01-06 10:57] LABS: ASCORBIC ACID (UR NOT ORDER) 40 (NEG); BILIRUBIN, URINE NEGATIVE (NEG); KETONE, URINE TRACE MG/DL (NEG); LEUKOCYTE ESTERASE(NOT OR SMALL (NEG); WBC (NOT ORDERED) (RFLEX) 39 (0-5)
[2017-01-07 06:11] LABS: BASOPHILS 0.2 %; BASOPHILS ABSOLUTE 0.02 10/3/uL (0.0-0.16); EOSINOPHILS 4.2 %; EOSINOPHILS ABSOLUTE 0.35 10/3/uL (0.0-0.53); HEMATOCRIT 32.8 % (40.0-51.0); HEMOGLOBIN 9.6 g/dL (13.6-17.8); IMMATURE GRANULOCYTES 0.7 %; IMMATURE GRANULOCYTES ABSOLUTE 0.06 10/3/uL (0.0-0.11); LYMPHOCYTES 9.2 %; LYMPHOCYTES ABSOLUTE 0.76 10/3/uL (0.67-4.30); MEAN CORPUS HGB CONC 29.3 g/dL (32.0-36.0); MEAN CORPUSCULAR HEMOGLOB 25.3 pg (26.0-34.0); MEAN CORPUSCULAR VOLUME 86.5 fL (80-100); MEAN PLATELET VOLUME 9.7 fL (9.2-13.0); MONOCYTES 6.9 %; MONOCYTES ABSOLUTE 0.57 10/3/uL (0.21-1.20); NEUTROPHILS 78.8 %; NEUTROPHILS ABSOLUTE 6.52 10/3/uL (2.02-8.40); PLATELET COUNT 199 10/3/uL (150-400); RBC DISTRIBUTION WIDTH 18.2 % (12.0-16.0); RED CELL COUNT 3.79 10/6/uL (4.7-6.1); WHITE BLOOD CELLS 8.3 10/3/uL (4.5-10.5)
[2017-01-07 06:13] LABS: MANUAL DIFF NO %
[2017-01-07 06:27] LABS: BUN (BLOOD UREA NITROGEN) 3 MG/DL (6-23); CALCIUM, SERUM 7.6 MG/DL (8.5-10.4); CHLORIDE, SERUM 119 MMOL/L (96-112); CO2 (CARBON DIOXIDE) 23 MMOL/L (24-34); PHOSPHORUS, SERUM 2.3 MG/DL (2.5-4.5); SODIUM, SERUM 153 MMOL/L (135-148)
[2017-01-07 06:37] LABS: CREATININE < 0.15 MG/DL (0.70-1.30); GFR AFRICAN AMERICAN 240 ML/MIN (>=60); GFR NON AFRICAN AMERICAN 207 ML/MIN (>=60); GLUCOSE, SERUM 55 MG/DL (60-99); POTASSIUM, SERUM 2.7 MMOL/L (3.5-5.3)
[2017-01-07 08:05] LABS: PROCALCITONIN 0.25 ng/mL (<0.5)
[2017-01-07 13:41] LABS: BUN (BLOOD UREA NITROGEN) 3 MG/DL (6-23); CHLORIDE, SERUM 113 MMOL/L (96-112); CO2 (CARBON DIOXIDE) 25 MMOL/L (24-34); SODIUM, SERUM 150 MMOL/L (135-148)
[2017-01-07 13:42] LABS: CREATININE < 0.15 MG/DL (0.70-1.30); GFR AFRICAN AMERICAN 240 ML/MIN (>=60); GFR NON AFRICAN AMERICAN 207 ML/MIN (>=60); GLUCOSE, SERUM 78 MG/DL (60-99); POTASSIUM, SERUM 4.1 MMOL/L (3.5-5.3)
[2017-01-07 13:43] LABS: CALCIUM, SERUM 8.7 MG/DL (8.5-10.4); PHOSPHORUS, SERUM 3.9 MG/DL (2.5-4.5)
[2017-01-08 07:20] LABS: BASOPHILS 0.2 %; BASOPHILS ABSOLUTE 0.03 10/3/uL (0.0-0.16); EOSINOPHILS 1.2 %; EOSINOPHILS ABSOLUTE 0.17 10/3/uL (0.0-0.53); HEMATOCRIT 34.8 % (40.0-51.0); HEMOGLOBIN 10.3 g/dL (13.6-17.8); IMMATURE GRANULOCYTES 0.7 %; MEAN CORPUS HGB CONC 29.6 g/dL (32.0-36.0); MEAN CORPUSCULAR HEMOGLOB 25.1 pg (26.0-34.0); MEAN CORPUSCULAR VOLUME 84.7 fL (80-100); MEAN PLATELET VOLUME 10.2 fL (9.2-13.0); MONOCYTES 5.8 %; MONOCYTES ABSOLUTE 0.81 10/3/uL (0.21-1.20); NEUTROPHILS 87.1 %; NEUTROPHILS ABSOLUTE 12.14 10/3/uL (2.02-8.40); PLATELET COUNT 243 10/3/uL (150-400); RED CELL COUNT 4.11 10/6/uL (4.7-6.1)
[2017-01-08 07:23] LABS: BUN (BLOOD UREA NITROGEN) 2 MG/DL (6-23); CALCIUM, SERUM 8.2 MG/DL (8.5-10.4); CHLORIDE, SERUM 112 MMOL/L (96-112); CO2 (CARBON DIOXIDE) 24 MMOL/L (24-34); POTASSIUM, SERUM 3.3 MMOL/L (3.5-5.3); SODIUM, SERUM 148 MMOL/L (135-148)
[2017-01-08 07:25] LABS: MANUAL DIFF NO %
[2017-01-08 07:26] LABS: CREATININE < 0.15 MG/DL (0.70-1.30); GFR AFRICAN AMERICAN 240 ML/MIN (>=60); GFR NON AFRICAN AMERICAN 207 ML/MIN (>=60); GLUCOSE, SERUM 104 MG/DL (60-99); PHOSPHORUS, SERUM 2.5 MG/DL (2.5-4.5)
[2017-01-09 04:10] LABS: BASOPHILS 0.3 %; BASOPHILS ABSOLUTE 0.04 10/3/uL (0.0-0.16); EOSINOPHILS 2.2 %; EOSINOPHILS ABSOLUTE 0.28 10/3/uL (0.0-0.53); HEMATOCRIT 36.6 % (40.0-51.0); HEMOGLOBIN 10.9 g/dL (13.6-17.8); IMMATURE GRANULOCYTES 1.7 %; IMMATURE GRANULOCYTES ABSOLUTE 0.21 10/3/uL (0.0-0.11); LYMPHOCYTES 5.1 %; LYMPHOCYTES ABSOLUTE 0.63 10/3/uL (0.67-4.30); MANUAL DIFF NO %; MEAN CORPUS HGB CONC 29.8 g/dL (32.0-36.0); MEAN CORPUSCULAR HEMOGLOB 24.8 pg (26.0-34.0); MEAN CORPUSCULAR VOLUME 83.2 fL (80-100); MEAN PLATELET VOLUME 9.7 fL (9.2-13.0); MONOCYTES 5.7 %; MONOCYTES ABSOLUTE 0.71 10/3/uL (0.21-1.20); PLATELET COUNT 226 10/3/uL (150-400); WHITE BLOOD CELLS 12.5 10/3/uL (4.5-10.5)
[2017-01-09 04:25] LABS: BUN (BLOOD UREA NITROGEN) 2 MG/DL (6-23); CALCIUM, SERUM 8.4 MG/DL (8.5-10.4); CHLORIDE, SERUM 112 MMOL/L (96-112); CO2 (CARBON DIOXIDE) 25 MMOL/L (24-34); GLUCOSE, SERUM 106 MG/DL (60-99); POTASSIUM, SERUM 3.5 MMOL/L (3.5-5.3); SODIUM, SERUM 149 MMOL/L (135-148)
[2017-01-09 04:26] LABS: CREATININE < 0.15 MG/DL (0.70-1.30); GFR AFRICAN AMERICAN 240 ML/MIN (>=60); GFR NON AFRICAN AMERICAN 207 ML/MIN (>=60)
[2017-01-11 04:03] LABS: BASOPHILS 0.2 %; BASOPHILS ABSOLUTE 0.02 10/3/uL (0.0-0.16); EOSINOPHILS 5.4 %; EOSINOPHILS ABSOLUTE 0.44 10/3/uL (0.0-0.53); HEMATOCRIT 34.5 % (40.0-51.0); HEMOGLOBIN 10.6 g/dL (13.6-17.8); IMMATURE GRANULOCYTES 1.1 %; IMMATURE GRANULOCYTES ABSOLUTE 0.09 10/3/uL (0.0-0.11); LYMPHOCYTES 9.6 %; LYMPHOCYTES ABSOLUTE 0.78 10/3/uL (0.67-4.30); MANUAL DIFF NO %; MEAN CORPUS HGB CONC 30.7 g/dL (32.0-36.0); MEAN CORPUSCULAR HEMOGLOB 25.7 pg (26.0-34.0); MEAN CORPUSCULAR VOLUME 83.5 fL (80-100); MONOCYTES 6.4 %; MONOCYTES ABSOLUTE 0.52 10/3/uL (0.21-1.20); NEUTROPHILS 77.3 %; NEUTROPHILS ABSOLUTE 6.27 10/3/uL (2.02-8.40); PLATELET COUNT 215 10/3/uL (150-400); RBC DISTRIBUTION WIDTH 17.9 % (12.0-16.0); RED CELL COUNT 4.13 10/6/uL (4.7-6.1); WHITE BLOOD CELLS 8.1 10/3/uL (4.5-10.5)
[2017-01-11 04:14] LABS: A/G RATIO 0.5 (0.7-1.9); ALBUMIN 1.8 G/DL (3.5-5.0); BUN (BLOOD UREA NITROGEN) 1 MG/DL (6-23); CALCIUM, SERUM 8.3 MG/DL (8.5-10.4); CHLORIDE, SERUM 107 MMOL/L (96-112); CO2 (CARBON DIOXIDE) 29 MMOL/L (24-34); GLOBULIN 3.6 G/DL (2.5-4.1); GLUCOSE, SERUM 105 MG/DL (60-99); PHOSPHORUS, SERUM 2.1 MG/DL (2.5-4.5); SGOT(AST) 14 U/L (5-40); SGPT(ALT) 13 U/L (5-65); SODIUM, SERUM 145 MMOL/L (135-148); TOTAL BILIRUBIN 0.3 MG/DL (0-1.2); TOTAL PROTEIN 5.4 G/DL (6.0-8.5)
[2017-01-11 04:25] LABS: POTASSIUM, SERUM 2.6 MMOL/L (3.5-5.3)
[2017-01-11 04:26] LABS: ALKALINE PHOSPHATASE 80 U/L (45-117); CREATININE < 0.15 MG/DL (0.70-1.30); GFR AFRICAN AMERICAN 240 ML/MIN (>=60); GFR NON AFRICAN AMERICAN 207 ML/MIN (>=60)
[2017-01-12 06:30] LABS: BASOPHILS 0.2 %; BASOPHILS ABSOLUTE 0.02 10/3/uL (0.0-0.16); EOSINOPHILS 2.6 %; EOSINOPHILS ABSOLUTE 0.31 10/3/uL (0.0-0.53); HEMATOCRIT 34.7 % (40.0-51.0); HEMOGLOBIN 10.6 g/dL (13.6-17.8); IMMATURE GRANULOCYTES 0.7 %; IMMATURE GRANULOCYTES ABSOLUTE 0.08 10/3/uL (0.0-0.11); LYMPHOCYTES 6.7 %; LYMPHOCYTES ABSOLUTE 0.78 10/3/uL (0.67-4.30); MEAN CORPUS HGB CONC 30.5 g/dL (32.0-36.0); MEAN CORPUSCULAR HEMOGLOB 25.3 pg (26.0-34.0); MEAN CORPUSCULAR VOLUME 82.8 fL (80-100); MEAN PLATELET VOLUME 10.4 fL (9.2-13.0); MONOCYTES 6.1 %; MONOCYTES ABSOLUTE 0.71 10/3/uL (0.21-1.20); NEUTROPHILS 83.7 %; NEUTROPHILS ABSOLUTE 9.81 10/3/uL (2.02-8.40); PLATELET COUNT 232 10/3/uL (150-400); RBC DISTRIBUTION WIDTH 17.9 % (12.0-16.0); RED CELL COUNT 4.19 10/6/uL (4.7-6.1)
[2017-01-12 06:32] LABS: MANUAL DIFF NO %; WHITE BLOOD CELLS 11.7 10/3/uL (4.5-10.5)
[2017-01-12 06:47] LABS: A/G RATIO 0.5 (0.7-1.9); ALBUMIN 1.9 G/DL (3.5-5.0); ALKALINE PHOSPHATASE 85 U/L (45-117); BUN (BLOOD UREA NITROGEN) 2 MG/DL (6-23); CALCIUM, SERUM 8.6 MG/DL (8.5-10.4); CHLORIDE, SERUM 109 MMOL/L (96-112); CO2 (CARBON DIOXIDE) 30 MMOL/L (24-34); GLOBULIN 3.6 G/DL (2.5-4.1); GLUCOSE, SERUM 117 MG/DL (60-99); POTASSIUM, SERUM 3.8 MMOL/L (3.5-5.3); SGOT(AST) 11 U/L (5-40); SGPT(ALT) 12 U/L (5-65); SODIUM, SERUM 146 MMOL/L (135-148); TOTAL BILIRUBIN 0.4 MG/DL (0-1.2); TOTAL PROTEIN 5.5 G/DL (6.0-8.5)
[2017-01-12 06:54] LABS: CREATININE < 0.15 MG/DL (0.70-1.30); GFR AFRICAN AMERICAN 240 ML/MIN (>=60); GFR NON AFRICAN AMERICAN 207 ML/MIN (>=60)
[2017-01-13 06:31] LABS: BASOPHILS 0.2 %; BASOPHILS ABSOLUTE 0.02 10/3/uL (0.0-0.16); EOSINOPHILS 3.4 %; EOSINOPHILS ABSOLUTE 0.33 10/3/uL (0.0-0.53); HEMATOCRIT 34.8 % (40.0-51.0); HEMOGLOBIN 10.7 g/dL (13.6-17.8); IMMATURE GRANULOCYTES 0.8 %; IMMATURE GRANULOCYTES ABSOLUTE 0.08 10/3/uL (0.0-0.11); LYMPHOCYTES 9.7 %; LYMPHOCYTES ABSOLUTE 0.94 10/3/uL (0.67-4.30); MANUAL DIFF NO %; MEAN CORPUS HGB CONC 30.7 g/dL (32.0-36.0); MEAN CORPUSCULAR HEMOGLOB 25.6 pg (26.0-34.0); MEAN CORPUSCULAR VOLUME 83.3 fL (80-100); MEAN PLATELET VOLUME 9.8 fL (9.2-13.0); MONOCYTES 5.6 %; MONOCYTES ABSOLUTE 0.54 10/3/uL (0.21-1.20); NEUTROPHILS 80.3 %; NEUTROPHILS ABSOLUTE 7.77 10/3/uL (2.02-8.40); PLATELET COUNT 235 10/3/uL (150-400); RBC DISTRIBUTION WIDTH 17.8 % (12.0-16.0); RED CELL COUNT 4.18 10/6/uL (4.7-6.1); WHITE BLOOD CELLS 9.7 10/3/uL (4.5-10.5)
[2017-01-13 06:47] LABS: BUN (BLOOD UREA NITROGEN) 5 MG/DL (6-23); CALCIUM, SERUM 8.6 MG/DL (8.5-10.4); CHLORIDE, SERUM 106 MMOL/L (96-112); CO2 (CARBON DIOXIDE) 33 MMOL/L (24-34); POTASSIUM, SERUM 3.8 MMOL/L (3.5-5.3); SODIUM, SERUM 145 MMOL/L (135-148)
[2017-01-13 06:49] LABS: CREATININE < 0.15 MG/DL (0.70-1.30); GFR AFRICAN AMERICAN 240 ML/MIN (>=60); GFR NON AFRICAN AMERICAN 207 ML/MIN (>=60); GLUCOSE, SERUM 147 MG/DL (60-99)
[2017-01-14 14:58] LABS: HEMATOCRIT 34.4 % (40.0-51.0); HEMOGLOBIN 10.2 g/dL (13.6-17.8); MEAN CORPUS HGB CONC 29.7 g/dL (32.0-36.0); MEAN CORPUSCULAR HEMOGLOB 25.5 pg (26.0-34.0); MEAN PLATELET VOLUME 11.2 fL (9.2-13.0); PLATELET COUNT 263 10/3/uL (150-400); RBC DISTRIBUTION WIDTH 17.8 % (12.0-16.0); WHITE BLOOD CELLS 8.3 10/3/uL (4.5-10.5)
[2017-01-14 15:00] LABS: MANUAL DIFF YES %
[2017-01-14 15:13] LABS: BUN (BLOOD UREA NITROGEN) 7 MG/DL (6-23); CALCIUM, SERUM 8.5 MG/DL (8.5-10.4); CHLORIDE, SERUM 107 MMOL/L (96-112); CO2 (CARBON DIOXIDE) 32 MMOL/L (24-34); POTASSIUM, SERUM 3.9 MMOL/L (3.5-5.3); SODIUM, SERUM 148 MMOL/L (135-148)
[2017-01-14 15:17] LABS: CREATININE < 0.15 MG/DL (0.70-1.30); GFR AFRICAN AMERICAN 240 ML/MIN (>=60); GFR NON AFRICAN AMERICAN 207 ML/MIN (>=60); GLUCOSE, SERUM 67 MG/DL (60-99)
[2017-01-14 16:14] LABS: BAND NEUTROPHILS 1 %; LYMPHOCYTES 11 %; LYMPHOCYTES ABSOLUTE (CALC) 0.91 10/3/uL (0.67-4.30); MONOCYTES 5 %; MONOCYTES ABSOLUTE (CALC) 0.42 10/3/uL (0.21-1.20); NEUTROPHILS ABSOLUTE (CALC) 6.97 10/3/uL (2.02-8.40); SEGMENTED NEUTROPHIL (0) 83 %; TOTAL NUCLEATED CELLS 100
[2017-01-14 16:20] LABS: ANISOCYTOSIS 1+ (5-10/OIF) (0-5/OIF); PLATELET ESTIMATE ADQ (ADEQUATE); RBC MORPHOLOGY ABN (NORMAL)
== END 2017-01-16 19:14 | DRG 207 ==
LOC: ER 10:44 → MIC 16:06 → IMCU 01-10 01:17
PROVIDERS: Emergency Medicine; Family Medicine; Hospitalist; Internal Medicine Critical Care Medicine; Internal Medicine Nephrology; Internal Medicine Pulmonary Disease
DX: J15.0 Pneumonia due to Klebsiella pneumoniae (principal); J96.21 Acute and chronic respiratory failure with hypoxia; G71.11 Myotonic muscular dystrophy; E87.1 Hypo-osmolality and hyponatremia; Z99.11 Dependence on respirator [ventilator] status; D63.8 Anemia in other chronic diseases classified elsewhere; E11.9 Type 2 diabetes mellitus without complications; J98.11 Atelectasis; J96.12 Chronic respiratory failure with hypercapnia; I10 Essential (primary) hypertension; E78.5 Hyperlipidemia, unspecified; I25.10 Atherosclerotic heart disease of native coronary artery without angina pectoris; E87.6 Hypokalemia; K56.41 Fecal impaction; Z51.5 Encounter for palliative care; Z93.0 Tracheostomy status; Z79.899 Other long term (current) drug therapy; Z74.01 Bed confinement status; Z93.1 Gastrostomy status; Z95.1 Presence of aortocoronary bypass graft; Z79.84 Long term (current) use of oral hypoglycemic drugs; Z79.4 Long term (current) use of insulin; Z79.01 Long term (current) use of anticoagulants; F41.9 Anxiety disorder, unspecified; F32.9 Major depressive disorder, single episode, unspecified; I48.2 Chronic atrial fibrillation
CPT/HCPCS: 31720; 36569; 71010; 71250; 74000; 74176; 80048; 80053; 80069; 80202; 81001; 82962; 83605; 83735; 84100; 84132; 84145; 84439; 84443; 84481; 85025; 85610; 85730; 87040; 87070; 87077; 87086; 87186; 87205; 87493; 87493-59; 87641; 90686; 93005; 94003; 94640; 96365; 96523; 97162-GP; 99291; A9270-GY; C1751; C9113; G0008; G0463; J2185; J2405; J2543; J3370

== ENCOUNTER 2017-01-27 16:11 | Inpatient (IN) | payer OTHER ==
--- NOTE | ~2017-01-27 | CN ---
Consultation Report [facility] [address] [place]. [address] NAME: SCOTT MENJIVAR : 67 STATUS : ADM IN PAT#: [id number] AGE: 51 ADM/REG DATE : 01/27/17 MR#: [id number] REPORT SERV DATE: 01/29/17 DICTATED BY: JULIEN COLON DATE: 01/28/17 REPORT STATUS : Draft TRANSCRIBED BY: MODL DATE: 01/28/17 CONSULTATION DATE OF CONSULTATION: 01/28/2017 CHIEF COMPLAINT: Abdominal distention in a patient with chronic respiratory failure and vent dependence. HISTORY OF PRESENT ILLNESS: Mr. Scott Menjivar is a 51-year-old chronically ill appearing white male with a past medical history significant for chronic respiratory failure with vent dependence, tracheostomy, PEG tube, frequent mucus plugging, chronic hypotension, and chronic dysrhythmia, who presents to [facility]'s Emergency Room from an outside care facility for concerns related to abdominal distention. It should be noted that Mr. Menjivar was hospitalized as recently as three weeks ago, when he was seen for similar complaints. Mr. Menjivar resides at [facility] secondary to his chronic respiratory failure and vent dependence. He has been seen by Dr. Stewart in the past. He is on vent settings of SIMV rate of 12 with tidal volume of 500, PEEP of 5, and pressure support of 10. He does have a trach, which has likely some degree of chronic colonization with Proteus and Klebsiella. He has been described in the medical record as being a never smoker. It should be noted that the majority of the following information is garnered from extensive chart review as the patient has difficulty communicating. Again, it appears that Mr. Menjivar was hospitalized as recently as of late December of this year. He was initially seen by the Critical Care Team for vent management, after he presented with issues related to abdominal distention. During that hospitalization, he was seen by Gastroenterology service, who were consulted for a PEG tube change as well as fecal impaction. During this hospitalization, he was also seen by Infectious Disease secondary to a tracheal aspirate that demonstrated Klebsiella and Proteus. The patient did eventually improve and transitioned back to [facility]. More recently, he began to have issues with abdominal distention and as such was transferred to [facility] for further assessment. Upon arrival, the patient was found to be normotensive. He was afebrile. He had appropriate oxygenation on his current settings. He was placed on antibiotics. Procalcitonin was obtained, which revealed a value of 0.53. Initial blood work revealed a white blood cell count of 10,400. He did have a chest x-ray, which revealed improving chest x-ray with resolving pleural effusions. A CT of the abdomen and pelvis revealed improving consolidation in the lung bases as well as improving effusion and ectatic sigmoid colon was appreciated. For the aforementioned reasons, he has been referred to the Pulmonary service for further assessment. Currently, Mr. Menjivar is in the IMCU. He is on a ventilator with good oxygenation sats. His serum CO2 is 36. He is not producing a great amount of purulent sputum. He denies any chest pain or difficulty breathing at this time. Consultation Report [id number] [facility] [place]. [address] NAME: SCOTT MENJIVAR : 67 STATUS : ADM IN [facility]#: [id number] AGE: 51 ADM/REG DATE : 01/27/17 MR#: [id number] REPORT SERV DATE: 01/29/17 DICTATED BY: JULIEN COLON DATE: 01/28/17 REPORT STATUS : Draft TRANSCRIBED BY: MELL DATE: 01/28/17 The patient does have a history of chronic hypotension and is on midodrine. He does have chronic atrial flutter and is on Xarelto for anticoagulation. He denies any chest pain. In regard to constitutional symptoms, these are difficult to obtain due to the patient's mental status and inability to communicate. PAST MEDICAL HISTORY: 1. Atrial flutter. 2. Myotonic dystrophy. 3. Chronic respiratory failure with vent dependence. 4. 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 5. Chronic hypertension, on midodrine. 6. Dyslipidemia. 7. Dysphagia, status post PEG placement. 8. Chronic pleural effusions. 9. History of mucus plugging. 10.Type 2 diabetes. 11.Liver hemangioma. PAST SURGICAL HISTORY: CABG, tracheostomy, and PEG placement FAMILY HISTORY: The patient is unable to provide at this time. SOCIAL HISTORY: From chart review, it appears that he resides at [facility]. He has never been . TOBACCO/ALCOHOL: Again from chart review, it appears he is a never smoker. MEDICATIONS: 1. Acetaminophen 325 mg. 2. DuoNeb. 3. Xanax 0.5 mg. 4. Atorvastatin 10 mg. 5. Baclofen 10 mg. 6. Diltiazem 30 mg. 7. Furosemide 40 mg. 8. Gemfibrozil 600 mg. 9. Guaifenesin. 10.Insulin. 11.Lactulose. 12.Loratadine 10 mg. 13.Reglan 10 mg. 14.Omeprazole 20 mg. 15.Rivaroxaban 20 mg. 16.Tramadol 50 mg. Consultation Report [id number] [place]. [address] NAME: SCOTT MENJIVAR : 67 STATUS : ADM IN [facility]#: [id number] AGE: 51 ADM/REG DATE : 01/27/17 MR#: [id number] REPORT SERV DATE: 01/29/17 DICTATED BY: JULIEN COLON DATE: 01/28/17 REPORT STATUS : Draft TRANSCRIBED BY: MELL DATE: 01/28/17.Zolpidem 5 mg. ALLERGIES: THE PATIENT HAS NO KNOWN DRUG ALLERGIES. REVIEW OF SYSTEMS: Unobtainable due to the patient's inability to communicate and mental status. PHYSICAL EXAMINATION: VITAL SIGNS: Blood pressure 91/51, heart rate is 70, T-max is 99.4, respiratory rate is 12, SpO2 is 94% on the ventilator, FiO2 of 30%, rate of 12, tidal volume 500, PEEP of 5, and pressure support of 10. GENERAL: The patient awakens and responds to voice. He is not currently exhibiting signs of acute distress. SKIN: Skin with appropriate texture and turgor. No rashes, lesions, or ulcers that are easily identifiable. HEENT: Head: Skull is normocephalic, atraumatic. Facies are symmetric. No masses or lesions. Eyes: Sclerae anicteric. Ears: Auricles and tragus without pain to palpation. Nose: Bilateral nasal patency. Throat: Relatively good dentition, in good repair. NECK: Tracheostomy site appreciated. THORAX/LUNGS: Bilateral rhonchi appreciated. CARDIOVASCULAR: No murmurs, rubs, or gallops. ABDOMEN: Mildly distended, but nontender. PERIPHERAL VASCULAR: No edema. MUSCULOSKELETAL: Unable to assess. NEUROLOGIC: Fairly good muscle bulk and tone. PSYCHIATRIC: Unable to assess. ACCESSORY DATA: Reveals a potassium of 3.0, creatinine is 0.18, procalcitonin is 0.53[place] [address], hemoglobin and hematocrit are 9.2 and 31.6. Nasal swab is negative for MRSA and MSSA. Chest x-ray reveals resolving pleural effusion. CT of the abdomen and pelvis reveals improving consolidation in the lung bases as well improving consolidation. There is ectatic sigmoid colon appreciated as well. IMPRESSION: 1. Abdominal distention. 2. Chronic respiratory failure with vent dependence. 3. Tracheostomy with chronic colonization. 4. History of mucus plugging. 5. Bilateral pleural effusions, now improved. 6. Myotonic dystrophy. 7. Chronic atrial flutter. 8. Chronic hypotension. Consultation Report [id number] [facility] [place]. [address] NAME: SCOTT MENJIVAR : 67 STATUS : ADM IN [facility]#: [id number] AGE: 51 ADM/REG DATE : 01/27/17 MR#: [id number] REPORT SERV DATE: 01/29/17 DICTATED BY: JULIEN COLON DATE: 01/28/17 REPORT STATUS : Draft TRANSCRIBED BY: MELL DATE: 01/28/17 PLAN: 1. Concerning the CT abdomen findings, we will defer to the primary team. In regard to the patient's chronic respiratory failure and vent dependence, he is on his baseline vent settings. We will certainly surveil for increasing oxygen requirements for developing a new infiltrate on chest x-ray. 2. In regard to the patient's trach with chronic colonization, would not need additional antibiotics at this time. 3. In regard to the patient's history of mucus plugging, again we will surveil the patient with chest x-rays and perform therapeutic bronchoscopy and lavage as needed. 4. In regard to the patient's pleural effusions, these have improved radiographically. Again, this would be surveilled moving forward with chest x-rays. The aforementioned impression and plan has been discussed with Dr. Norris, who will follow further recommendations. We thank you for this consult and look forward to participating in the care of Scott Menjivar. GBS/MODL Julien Colon PA-C / [id number] CC: Nino Dumont M.D.
--- NOTE | ~2017-01-27 | HP ---
History And Physical [facility] [address] [place]. [address] NAME: SCOTT MENJIVAR : 67 STATUS : ADM IN [facility]#: [id number] AGE: 51 ADM/REG DATE : 01/27/17 MR#: [id number] REPORT SERV DATE: 01/28/17 DICTATED BY: NUNO DONNELLY DATE: 01/28/17 REPORT STATUS : Draft TRANSCRIBED BY: MODL DATE: 01/28/17 DATE OF ADMISSION: 01/27/2017 CHIEF COMPLAINT: Complaint of pain to his abdomen. HISTORY OF PRESENT ILLNESS: The patient is a 51-year-old male with history of chronic respiratory failure on chronic mechanical ventilation support, has had issue with constipation and abdominal distention. He was sent back to [facility] yesterday for the same issue with abdominal distention, concern of PICC line being infected since the patient refused PICC line to be removed at [facility]. The patient was at [facility] recently for the same concern with abdominal distention with chronic constipation, was followed by field artillery officer, had remained on multiple stool softeners and laxative as well as Reglan. The patient also was treated for ESBL Klebsiella pneumonia, completed antibiotic at [facility]. A PICC line was ordered for it to be removed after completion of antibiotic. The patient's nurse reports that the patient had 3 bowel movements today. The patient on a vent, chronically able to mouth words and answer simple questions but most information obtained from medical records obtained from previous hospitalization at [facility] as well as record from [facility]. I did discuss the case with Pulmonary today reports the patient is stable on vent. His chest x-ray that was done on 01/27/2017, is showing the patient having better imaging study compared to his x-ray which was last done on January 03 prior to discharge back to [facility]. Spoke with the patient's nurse today who reports the patient with good bowel sounds and bowel movement x3. Abdomen not significantly distended. She reports they did attempt to remove the PICC line but the patient refused. ALLERGIES: NO KNOWN DRUG ALLERGIES. MEDICATIONS: Reconciliative home medications include Tylenol p.r.n.; DuoNeb 3 times a day; Xanax 0.5 mg 3 times a day; Lipitor 10 mg at bedtime; baclofen 5 mg 3 times a day; Cardizem 30 mg 3 times a day; iron sulfate 3 times a day; Lasix 40 mg daily; gemfibrozil 600 mg twice a day; Guaifenesin syrup 10 mL every 8 hours; lactulose 30 mL twice a day; Claritin 10 mg daily; Reglan 10 mg 4 times a day; centrum daily; omeprazole 20 mg daily; Xarelto 20 mg daily; senna 2 tabs daily; tramadol 50 mg p.r.n. q.6 hours; Probiotics 1 cap daily; and Ambien 5 mg at bedtime. PAST MEDICAL HISTORY: 1. History positive for recent ESBL Klebsiella pneumonia, right greater than left. 2. Chronic abdominal distention with chronic constipation. 3. Dysphagia with PEG. 4. Advanced myotonic dystrophy. 5. Chronic hypercapnic respiratory failure, vent dependent. 6. History of atrial fibrillation atrial flutter on anticoagulation therapy. 7. History of hypotension. History And Physical [address] [address] NAME: SCOTT MENJIVAR : 67 STATUS : ADM IN [facility]#: [id number] AGE: 51 ADM/REG DATE : 01/27/17 MR#: [id number] REPORT SERV DATE: 01/28/17 DICTATED BY: NUNO DONNELLY DATE: 01/28/17 REPORT STATUS : Draft TRANSCRIBED BY: MELL DATE: 01/28/17 8. Depression. 9. Hyperlipidemia. 10.Debility. 11.Anemia secondary to chronic disease. 12.History of mucous plugging, history of bilateral pleural effusion. 13.History of overall debilitation. 14.History of sclerosing hemangioma of the liver. PAST SURGICAL HISTORY: PEG tube placement, tracheostomy placement, and history of CABG. SOCIAL HISTORY: The patient is currently a resident of [facility]. Never been . [employer] worship and has relatives that help with his care. No history of smoking. FAMILY HISTORY: Hypertension and heart disease. REVIEW OF SYSTEMS: Limited secondary to patient on the vent. The patient is able to answer simple questions. The patient denies any difficulty breathing, chest pain, nausea, complaint of some abdominal discomfort, but no vomiting, the patient denies any other pain. PHYSICAL EXAMINATION: VITAL SIGNS: Blood pressure of 94/56, temperature of 99.4, pulse 94, respiratory rate 29, FiO2 at 30% on SIMV with set rate of 12, set total volume of 500, PEEP 5, PIP 25, and sat O2 of 98%. GENERAL: The patient is alert and oriented to self. He attempts to mouth words but difficult to understand. HEENT: Oral mucosa moist. Eyes PERRL. Nonicteric bilaterally. NECK: Trach secured with no bleeding or drainage noted. CHEST: No chest deformity noted. LUNGS: Clear to auscultation bilaterally with symmetrical expansion. The patient remained on the vent. CV: No murmurs noted. Heart rate regular. ABDOMEN: Round but soft with PEG tube secured in the left upper quadrant. : Prince noted with clear yellow urine in bag to gravity. EXTREMITIES: Bilateral lower extremities 1 to 2+. The patient is functional quadriplegic. Right upper extremity PICC line noted without redness or edema. No pain on palpation. Left lower arm with peripheral IV dry and intact without redness or edema. IMAGING STUDIES: 1. Abdominal pelvis CT scan without contrast on 12/30/2016, showed ectatic sigmoid colon without volvulus. Prince catheter balloon is inflated in the prostate gland and less extensive consolidation at the pulmonary bases compared to this January 03. 2. Chest x-ray on 01/27/2017 revealed resolving bilateral pleural effusion, indicated new PICC line in good position with no pneumothorax. LABORATORY STUDY: A 01/27/2017 labs, sodium 140, potassium 3.1, chloride 92, CO2 of 38, BUN 23, creatinine 0.34, glucose 178, GFR of 148. WBC 13.9, hemoglobin 10.4, hematocrit 34.6, History And Physical [address] [address] NAME: SCOTT MENJIVAR : 67 STATUS : ADM IN [facility]#: [id number] AGE: 51 ADM/REG DATE : 01/27/17 MR#: [id number] REPORT SERV DATE: 01/28/17 DICTATED BY: NUNO DONNELLY DATE: 01/28/17 REPORT STATUS : Draft TRANSCRIBED BY: MODL DATE: 01/28/17 and platelet of 307. AST 17, bilirubin 0.3, total protein 7.3, ALT 16, albumin 2.5, alkaline phosphate 95, and procalcitonin 0.53. Labs on 01/28/2017 revealed sodium 146, potassium 3.0, chloride 100, CO2 of 36, BUN 19, creatinine 0.18, glucose 114, GFR of 192. WBC 10.4, hemoglobin 9.2, hematocrit 31.6, and platelets of 273. IMPRESSION: 1. Possible PICC line infection, doubt this may be the case since patient afebrile with white count on admission only at 13.9 and repeat was 10.4 with admission procalcitonin not significant at 0.53. The patient did receive IV vancomycin empirically. The patient had agreed to have the PICC line removed and we will plan to send the tip of PICC line for a culture. We will continue vancomycin for now for empiric treatment. We will have Pharmacy to follow up vancomycin trough and dose appropriately. We will maintain INT for now for vancomycin. If this is negative, we will plan to discontinue vancomycin and if positive, we will plan to treat for bacteremia and will need replacement of PICC line. The patient is hemodynamically stable, has chronic history of hypotension, so this is normal for him in systolic in the 90s. We will closely monitor. The patient is at risk for sepsis. 2. History of chronic abdominal distention with constipation as the patient did have a CT scan on 01/27/2017 which showed no significant bowel obstruction or abnormality. Did note the Prince catheter was in the prostate gland which will be advanced by nurse today. We will continue current bowel regimen and if needed p.r.n. laxative and monitor bowel movement closely. The patient is at high risk for recurrent bowel obstruction secondary to chronic constipation. 3. Chronic hypercapnic respiratory failure. The patient remains vent dependent with the patient's vent setting unchanged from previous admission. The patient did get seen by Pulmonology today. Recommend continue current vent setting, review the chest x-ray which report CT and x-ray revealed the lungs better with resolving bilateral pleural effusion as compared to previous admission. We will continue sat O2 monitor. Continue breathing treatment as scheduled. The patient is at risk for further hypoxia. 4. Hypokalemia. Place the patient on electrolyte protocol and monitor potassium level. The patient is at risk for cardiac arrhythmia. The patient is placed on telemetry. We will closely monitor given history of atrial fibrillation, atrial flutter. The patient's heart rate is well controlled. The patient is on Xarelto for anticoagulation. The patient is at risk for RVR or CVA. 5. Dysphagia with PEG tube. The patient will have his tube feeding resumed. Continue to monitor tube feeding residual and keep head of bed greater than 30 degrees. The patient is at risk for aspiration. 6. History of bilateral pleural effusion, chronic, seen on CT scan as well as chest x-ray. Pleural effusion is resolving. We will continue to monitor imaging study. The patient is at risk for further hypoxia. 7. Anxiety and depression. We will continue current med regimen. The patient is at risk for poor recovery. 8. Patient with history of chronic advanced myelodysplasia. We will provide supportive care. History of mucous plugging. We will continue trach care per protocol and suction trach q.2 hours and p.r.n. The patient is at risk for recurrent mucus plugging. 1. History of hypotension. The patient is at risk for worsening hypotension. The patient History And Physical [address] [address] NAME: SCOTT MENJIVAR : 67 STATUS : ADM IN [facility]#: [id number] AGE: 51 ADM/REG DATE : 01/27/17 MR#: [id number] REPORT SERV DATE: 01/28/17 DICTATED BY: NUNO DONNELLY DATE: 01/28/17 REPORT STATUS : Draft TRANSCRIBED BY: MELL DATE: 01/28/17 not currently on midodrine but we will closely monitor. 2. History of allergic rhinitis. We will continue Claritin. Patient with risk of mucous plugging. 3. Anemia secondary to chronic disease. Continue iron supplement. We will monitor H and H closely. Admission H and H is slightly decreased to 9.2 and 31.6, likely secondary to IV fluids. 4. Patient on Xarelto, does not require DVT prophylaxis. 5. We will plan to have the patient return back to [facility] as soon as insurance approval. I discussed with liaison and we will discuss with Case Management. CODE STATUS: The patient remains a full code. We will need to readdress with family members given the patient's chronic condition with recurrent admission to establish the patient with poor prognosis. DICTATED BY: Radha Wang NP CLP/MODL Nuno Donnelly M.D. / [id number] CC: Jonathan Braxton M.D.
--- NOTE | ~2017-01-27 | DS ---
Discharge Summary [facility] [address] [place]. [address] NAME: SCOTT MENJIVAR : 67 STATUS : DIS IN PAT#: [id number] AGE: 51 ADM/REG DATE : 01/27/17 MR#: [id number] REPORT SERV DATE: 02/10/17 DICTATED BY: NUNO DONNELLY DATE: 02/09/17 REPORT STATUS : Draft TRANSCRIBED BY: MELL DATE: 02/09/17 Data Collection from hospitalization DISCHARGE DIAGNOSES: 1. Abdominal distention with chronic constipation - improved. 2. Possible line-related infection. 3. Chronic hypercapnia. 4. Chronic hypotension. 5. Dysphagia with PEG tube. 6. History of bilateral pleural effusions. 7. Anxiety and depression. 8. History of advanced myotonic dystrophy. 9. History of atrial fibrillation. 10.Dysphagia with PEG tube. 11.Depression. 12.Debility. 13.Hyperlipidemia. 14.Anemia secondary to chronic disease. CONSULTATIONS: Julien Brandt PA-C PROCEDURE: CT scan of the abdomen and pelvis without contrast, 01/27/2017. DISCHARGE MEDICATIONS: Xanax 0.5 mg per PEG tube three times a day, Lipitor 10 mg per PEG tube at bedtime, Lioresal 5 mg per PEG tube three times a day, Cardizem 30 mg per PEG tube three times a day as instructed, ferrous sulfate 300 mg per PEG tube three times a day, Lasix 40 mg per PEG tube daily, Lopid 600 mg per PEG tube twice a day, guaifenesin syrup 10 mL per PEG tube every 8 hours as instructed, NovoLog insulin as instructed, Constulose 30 mL per PEG tube twice a day, Claritin 10 mg per PEG tube daily, Reglan 10 mg per PEG tube 4 times a day, Prilosec 20 mg daily, Xarelto 20 mg at 5:00 p.m. as instructed, Senokot 2 tablets per PEG tube daily - hold for diarrhea, Zoloft 150 mg per PEG tube at bedtime, Ambien 5 mg per PEG tube at bedtime, Centrum 1 tablet per PEG tube daily, probiotic one capsule per PEG tube daily, Ultram 50 mg per PEG tube every six hours as needed, glucagon 1 mg IM as needed, Tylenol 325 mg per PEG tube every four hours as needed, and DuoNeb inhaled solution one nebulized inhaler three times a day as instructed. CONDITION ON DISCHARGE: Stable. DISPOSITION: The patient was discharged to [facility] on tube feedings with activities as instructed. HOSPITAL COURSE: This is a 51-year-old man who has a history of chronic respiratory failure, on chronic mechanical ventilation support. He had issues with constipation and abdominal distention. He was sent back to [facility] on the day of admission for this issue with abdominal distention and a concern of the PICC line being infected since the patient refused the PICC line to be removed at [facility]. The patient had been at [facility] recently for this same concern with abdominal distention and chronic constipation. He had been followed by fur dry cleaner. He remained on multiple stool softeners and laxatives as well Discharge Summary [address] [address] NAME: SCOTT MENJIVAR : 67 STATUS : DIS IN PAT#: [id number] AGE: 51 ADM/REG DATE : 01/27/17 MR#: [id number] REPORT SERV DATE: 02/10/17 DICTATED BY: NUNO DONNELLY DATE: 02/09/17 REPORT STATUS : Draft TRANSCRIBED BY: MELL DATE: 02/09/17 [facility]. He had been treated for ESBL Klebsiella pneumoniae and had completed his antibiotic at [facility]. The PICC line was ordered to be removed after completion of the antibiotic. The patient's nurse reports that the patient had 3 bowel movements on the day of admission. The patient was on a vent chronically. He was able to answer simple questions and mild words, but most information is obtained from his medical records and [facility]. The patient's nurse reported that they did attempt to remove the PICC line but that the patient refused. He was admitted to the hospital at this time for further evaluation and treatment. Upon admission, chest x-ray revealed resolving bilateral pleural effusions. The new PICC line was in good position and there was no pneumothorax. It was felt that there may be a PICC line infection, but we were doubtful that this was the case since the patient had been afebrile and white count on admission was only 13.9 and on repeat was 10.4. Admission procalcitonin was not significant at 0.53. The patient had received empiric IV vancomycin. The patient agreed to have the PICC line removed, and we would send the tip of the PICC line for culture. Vancomycin would be continued now for empiric treatment. If cultures were negative, we would discontinue the vancomycin, and if positive, we would plan to treat for bacteremia and replace the PICC line. The patient was hemodynamically stable. Electrolyte protocol was in place. We would monitor the potassium level. The patient was placed on telemetry. A Prince catheter was going to be advanced. The patient is on Xarelto for anticoagulation. We would continue to monitor tube feeding residual and the keep the head of his bed elevated greater than 30 degrees. He does have a history of hypotension, Claritin was continued for his history of allergic rhinitis. He also has a history of mucous plugging. He has anemia secondary to chronic disease, iron supplement was continued. He does not require DVT prophylaxis as he is on Xarelto. The following day, he was seen by Julien Brandt. The patient's chief complaint at this time is abdominal distention in a patient with chronic respiratory failure and vent dependence. The patient was normotensive at this time. He was afebrile. He had appropriate oxygenation on his current settings. He had been placed on antibiotics and procalcitonin level was checked. The patient has never been a smoker. He was on a ventilator with good oxygen saturation. Serum CO2 was 36. He was not producing a great amount of purulent sputum. He denied any chest pain or difficulty breathing at this time. He does have a history of chronic hypotension and is on midodrine. He does have chronic atrial flutter and is on Xarelto for anticoagulation. He denied any chest pain or difficulty breathing at this time. A nasal swab was negative for MRSA and MSSA. Chest x- ray revealed resolving pleural effusion. CT scan of the abdomen and pelvis revealed improving consolidation in the lung bases as well as improving consolidation. There was ectatic sigmoid colon appreciated as well. He would be observed for increasing oxygen requirements and for developing a new infiltrate on chest x-ray. It was felt that he would not need additional antibiotics at this time. With regard to his history of mucus plugging, we would observe the patient with chest x-rays and perform therapeutic bronchoscopy and lavage as needed. His pleural effusion had improved radiographically on the , there have been no acute events overnight. Blood cultures were negative to date. White count was 9.9. Discharge planning was performed. On 01/30/2017, chest x-ray revealed bibasilar atelectasis and/or infiltrates that were similar to the previous study. Pleural effusions were improving. He was stable on his baseline settings. His constipation had improved, senna was going to be stopped. Discharge instructions were given. His blood pressure was Discharge Summary [address] [place]. [address] NAME: SCOTT MENJIVAR : 67 STATUS : DIS IN PAT#: [id number] AGE: 51 ADM/REG DATE : 01/27/17 MR#: [id number] REPORT SERV DATE: 02/10/17 DICTATED BY: NUNO DONNELLY DATE: 02/09/17 REPORT STATUS : Draft TRANSCRIBED BY: MELL DATE: 02/09/17 stable. Due to his improved and stable condition, he was discharged to [facility] with the above-stated instructions. Information collected by: Claudia Mcdowell I submit the above information as my discharge summary. PAYAL/MELL Nuno Donnelly M.D. / [id number] CC: Nino Dumont M.D. [facility]
[2017-01-27 14:55] LABS: ASCORBIC ACID (UR NOT ORDER) 40 (NEG); BILIRUBIN, URINE NEGATIVE (NEG); ER URINALYSIS TAT 0 Hrs 09 Mins; KETONE, URINE NEGATIVE (NEG); LEUKOCYTE ESTERASE(NOT OR SMALL (NEG); NITRITE (URINE) NEG (NEG); WBC (NOT ORDERED) (RFLEX) 34 (0-5)
[~2017-01-27 16:11] MED LIST: AMB5 PEG; CARD30 PEG; CENTRUM PEG; CLARIT10 PEG; DUONEB INH; FESO4UDL PEG; GLUCAGON IM; GLUCOPHAGE1000 MG PEG; GLUCPH PEG; HEPA50006 SC; HUMALOGPEN SC; L40 PEG; LANTUS SC; LIOR10 PEG; LIPITOR10 PEG; LOPID6 PEG; MIRALAX POWDER1 PKT PEG; PRILO PEG; PROBIOTIC PEG; REG PEG; SENTAB PEG; SILTUSSIN100 MG/5 M PEG; ULTRAM50 PEG; X5 PEG; XARELTO20 MG PO; ZOL100 PEG
[2017-01-27 16:41] LABS: BASOPHILS 0.4 %; BASOPHILS ABSOLUTE 0.05 10/3/uL (0.0-0.16); EOSINOPHILS 2.7 %; EOSINOPHILS ABSOLUTE 0.37 10/3/uL (0.0-0.53); HEMATOCRIT 34.6 % (40.0-51.0); HEMOGLOBIN 10.4 g/dL (13.6-17.8); IMMATURE GRANULOCYTES 0.6 %; IMMATURE GRANULOCYTES ABSOLUTE 0.09 10/3/uL (0.0-0.11); LYMPHOCYTES 7.8 %; LYMPHOCYTES ABSOLUTE 1.08 10/3/uL (0.67-4.30); MEAN CORPUS HGB CONC 30.1 g/dL (32.0-36.0); MEAN CORPUSCULAR HEMOGLOB 24.2 pg (26.0-34.0); MEAN PLATELET VOLUME 11.3 fL (9.2-13.0); MONOCYTES 5.5 %; MONOCYTES ABSOLUTE 0.76 10/3/uL (0.21-1.20); NEUTROPHILS ABSOLUTE 11.52 10/3/uL (2.02-8.40); NUCLEATED RED BLOOD CELLS 0.2 /100WBC (0-0); PLATELET COUNT 307 10/3/uL (150-400); RBC DISTRIBUTION WIDTH 17.5 % (12.0-16.0); RED CELL COUNT 4.29 10/6/uL (4.7-6.1)
[2017-01-27 16:42] LABS: ER CBC TAT 0 Hrs 11 Mins; MANUAL DIFF NO %; MEAN CORPUSCULAR VOLUME 80.7 fL (80-100); WHITE BLOOD CELLS 13.9 10/3/uL (4.5-10.5)
[2017-01-27 16:45] LABS: INTERNATIONAL NORMAL RATI 1.2 UNITS (-); PARTIAL THROMBO TIME 30.3 SEC (22.5-37.2)
[2017-01-27 16:52] LABS: PROTIME (NOT ORD) 15.1 SEC (12.0-14.5)
[2017-01-27 16:54] LABS: ALKALINE PHOSPHATASE 95 U/L (45-117); CALCIUM, SERUM 9.3 MG/DL (8.5-10.4); CREATININE 0.34 MG/DL (0.70-1.30); GFR AFRICAN AMERICAN 172 ML/MIN (>=60); GFR NON AFRICAN AMERICAN 148 ML/MIN (>=60); SGOT(AST) 17 U/L (5-40); SGPT(ALT) 16 U/L (5-65); TOTAL BILIRUBIN 0.3 MG/DL (0-1.2)
[2017-01-27 16:56] LABS: A/G RATIO 0.5 (0.7-1.9); ALBUMIN 2.5 G/DL (3.5-5.0); BUN (BLOOD UREA NITROGEN) 23 MG/DL (6-23); CHLORIDE, SERUM 92 MMOL/L (96-112); CO2 (CARBON DIOXIDE) 38 MMOL/L (24-34); GLOBULIN 4.8 G/DL (2.5-4.1); GLUCOSE, SERUM 178 MG/DL (60-99); POTASSIUM, SERUM 3.1 MMOL/L (3.5-5.3); SODIUM, SERUM 140 MMOL/L (135-148); TOTAL PROTEIN 7.3 G/DL (6.0-8.5)
[2017-01-27 17:04] LABS: LACTATE 1.9 MMOL/L (0.3-2.4)
[2017-01-27 17:20] LABS: ANISOCYTOSIS 1+ (5-10/OIF) (0-5/OIF); BAND NEUTROPHILS 6 %; BASOPHILS 1 %; BASOPHILS ABSOLUTE (CALC) 0.14 10/3/uL (0.0-0.16); EOSINOPHILS 1 %; EOSINOPHILS ABSOLUTE (CALC) 0.14 10/3/uL (0.0-0.53); ER DIFF TAT 0 Hrs 49 Mins; IMMATURE GRANS ABSOLUTE (CALC) 0.14 10/3/uL (0.0-0.11); LYMPHOCYTES 9 %; LYMPHOCYTES ABSOLUTE (CALC) 1.25 10/3/uL (0.67-4.30); METAMYELOCYTES 1 %; MONOCYTES 2 %; MONOCYTES ABSOLUTE (CALC) 0.28 10/3/uL (0.21-1.20); NEUTROPHILS ABSOLUTE (CALC) 11.95 10/3/uL (2.02-8.40); PLATELET ESTIMATE ADQ (ADEQUATE); SEGMENTED NEUTROPHIL (0) 80 %; TOTAL NUCLEATED CELLS 100
[2017-01-27 18:23] LABS: PROCALCITONIN 0.53 ng/mL (<0.5)
[2017-01-27] MEDS ORDERED: CONSTULOSE PEG (18:24)
[2017-01-27] MEDS ORDERED: T PEG (18:26)
[2017-01-27] MEDS ORDERED: DUONEB INH (18:38)
[2017-01-28 04:53] LABS: CALCIUM, SERUM 8.9 MG/DL (8.5-10.4); CHLORIDE, SERUM 100 MMOL/L (96-112); CO2 (CARBON DIOXIDE) 36 MMOL/L (24-34); CREATININE 0.18 MG/DL (0.70-1.30); GFR AFRICAN AMERICAN 223 ML/MIN (>=60); GFR NON AFRICAN AMERICAN 192 ML/MIN (>=60); HEMATOCRIT 31.6 % (40.0-51.0); HEMOGLOBIN 9.2 g/dL (13.6-17.8); MEAN CORPUS HGB CONC 29.1 g/dL (32.0-36.0); MEAN CORPUSCULAR HEMOGLOB 23.7 pg (26.0-34.0); MEAN CORPUSCULAR VOLUME 81.4 fL (80-100); MEAN PLATELET VOLUME 10.6 fL (9.2-13.0); NUCLEATED RED BLOOD CELLS 0.3 /100WBC (0-0); PLATELET COUNT 273 10/3/uL (150-400); RBC DISTRIBUTION WIDTH 17.7 % (12.0-16.0); RED CELL COUNT 3.88 10/6/uL (4.7-6.1); SODIUM, SERUM 146 MMOL/L (135-148); WHITE BLOOD CELLS 10.4 10/3/uL (4.5-10.5)
[2017-01-28 04:58] LABS: MANUAL DIFF YES %
[2017-01-28 05:01] LABS: BUN (BLOOD UREA NITROGEN) 19 MG/DL (6-23); GLUCOSE, SERUM 114 MG/DL (60-99)
[2017-01-28 05:22] LABS: BAND NEUTROPHILS 3 %; BASOPHILS 1 %; EOSINOPHILS 6 %; EOSINOPHILS ABSOLUTE (CALC) 0.62 10/3/uL (0.0-0.53); LYMPHOCYTES 8 %; LYMPHOCYTES ABSOLUTE (CALC) 0.83 10/3/uL (0.67-4.30); MONOCYTES 3 %; MONOCYTES ABSOLUTE (CALC) 0.31 10/3/uL (0.21-1.20); NEUTROPHILS ABSOLUTE (CALC) 8.53 10/3/uL (2.02-8.40); PLATELET ESTIMATE ADQ (ADEQUATE); SEGMENTED NEUTROPHIL (0) 79 %; TOTAL NUCLEATED CELLS 100
[2017-01-28 05:23] LABS: STOMATOCYTES 1+ (3-10/OIF) (0-2/OIF)
[2017-01-28 19:53] LABS: PHOSPHORUS, SERUM 3.4 MG/DL (2.5-4.5)
[2017-01-29 04:48] LABS: BASOPHILS 0.3 %; BASOPHILS ABSOLUTE 0.03 10/3/uL (0.0-0.16); EOSINOPHILS 5.4 %; EOSINOPHILS ABSOLUTE 0.54 10/3/uL (0.0-0.53); HEMATOCRIT 33.6 % (40.0-51.0); HEMOGLOBIN 9.5 g/dL (13.6-17.8); IMMATURE GRANULOCYTES 1.2 %; IMMATURE GRANULOCYTES ABSOLUTE 0.12 10/3/uL (0.0-0.11); LYMPHOCYTES 10.7 %; LYMPHOCYTES ABSOLUTE 1.06 10/3/uL (0.67-4.30); MEAN CORPUS HGB CONC 28.3 g/dL (32.0-36.0); MEAN CORPUSCULAR HEMOGLOB 23.6 pg (26.0-34.0); MEAN CORPUSCULAR VOLUME 83.4 fL (80-100); MEAN PLATELET VOLUME 10.9 fL (9.2-13.0); MONOCYTES 5.8 %; MONOCYTES ABSOLUTE 0.58 10/3/uL (0.21-1.20); NEUTROPHILS 76.6 %; NEUTROPHILS ABSOLUTE 7.61 10/3/uL (2.02-8.40); PLATELET COUNT 281 10/3/uL (150-400); RBC DISTRIBUTION WIDTH 18.1 % (12.0-16.0); RED CELL COUNT 4.03 10/6/uL (4.7-6.1); WHITE BLOOD CELLS 9.9 10/3/uL (4.5-10.5)
[2017-01-29 04:53] LABS: MANUAL DIFF NO %
[2017-01-29 05:00] LABS: CHLORIDE, SERUM 108 MMOL/L (96-112); GLUCOSE, SERUM 117 MG/DL (60-99); IRON BINDING CAPACITY 233 MCG/DL (250-450); IRON, SERUM 32 MCG/DL (35-150); PHOSPHORUS, SERUM 3.7 MG/DL (2.5-4.5); SODIUM, SERUM 147 MMOL/L (135-148)
[2017-01-29 05:01] LABS: BUN (BLOOD UREA NITROGEN) 10 MG/DL (6-23); CO2 (CARBON DIOXIDE) 31 MMOL/L (24-34); CREATININE < 0.15 MG/DL (0.70-1.30); GFR AFRICAN AMERICAN 240 ML/MIN (>=60); GFR NON AFRICAN AMERICAN 207 ML/MIN (>=60); POTASSIUM, SERUM 4.1 MMOL/L (3.5-5.3)
[2017-01-30 04:42] LABS: BASOPHILS 0.2 %; BASOPHILS ABSOLUTE 0.02 10/3/uL (0.0-0.16); HEMATOCRIT 32.7 % (40.0-51.0); HEMOGLOBIN 9.6 g/dL (13.6-17.8); IMMATURE GRANULOCYTES 1.6 %; IMMATURE GRANULOCYTES ABSOLUTE 0.16 10/3/uL (0.0-0.11); LYMPHOCYTES 7.1 %; MEAN CORPUS HGB CONC 29.4 g/dL (32.0-36.0); MEAN CORPUSCULAR HEMOGLOB 24.7 pg (26.0-34.0); MEAN CORPUSCULAR VOLUME 84.1 fL (80-100); MEAN PLATELET VOLUME 10.3 fL (9.2-13.0); MONOCYTES 5.9 %; MONOCYTES ABSOLUTE 0.58 10/3/uL (0.21-1.20); NEUTROPHILS 83.2 %; NEUTROPHILS ABSOLUTE 8.15 10/3/uL (2.02-8.40); PLATELET COUNT 247 10/3/uL (150-400); RBC DISTRIBUTION WIDTH 18.3 % (12.0-16.0); RED CELL COUNT 3.89 10/6/uL (4.7-6.1); WHITE BLOOD CELLS 9.8 10/3/uL (4.5-10.5)
[2017-01-30 04:46] LABS: MANUAL DIFF NO %
[2017-01-30 04:52] LABS: BUN (BLOOD UREA NITROGEN) 9 MG/DL (6-23); CALCIUM, SERUM 8.8 MG/DL (8.5-10.4); CHLORIDE, SERUM 109 MMOL/L (96-112); CO2 (CARBON DIOXIDE) 28 MMOL/L (24-34); CREATININE 0.21 MG/DL (0.70-1.30); GFR AFRICAN AMERICAN 209 ML/MIN (>=60); GFR NON AFRICAN AMERICAN 180 ML/MIN (>=60); POTASSIUM, SERUM 3.8 MMOL/L (3.5-5.3); SODIUM, SERUM 148 MMOL/L (135-148)
[2017-01-30 05:02] LABS: GLUCOSE, SERUM 165 MG/DL (60-99)
== END 2017-01-30 17:59 | DRG 392 ==
LOC: ER 16:11 → IMCU 18:44
PROVIDERS: Emergency Medicine; Family Medicine
DX: R14.0 Abdominal distension (gaseous) (principal); J96.10 Chronic respiratory failure, unspecified whether with hypoxia or hypercapnia; J90 Pleural effusion, not elsewhere classified; G71.11 Myotonic muscular dystrophy; I95.9 Hypotension, unspecified; I48.92 Unspecified atrial flutter; Z99.81 Dependence on supplemental oxygen; Z93.0 Tracheostomy status; E87.6 Hypokalemia; F41.9 Anxiety disorder, unspecified; F32.9 Major depressive disorder, single episode, unspecified
CPT/HCPCS: 31720; 71010; 74176; 80048; 80053; 80202; 81001; 82962; 83540; 83550; 83605; 83735; 84100; 84145; 85025; 85610; 85730; 87040; 87070; 87086; 87641; 93005; 94002; 94003; 94640; 99285; A9270-GY; J3370